=== PATIENT | male | born 1965 | race Caucasian/White ===

== ENCOUNTER 2017-06-16 08:00 | Outpatient (RCR) | payer MEDICARE, MEDICAID, SELFPAY ==
[2017-06-01 12:28] VITALS: BP 154/103; PULSE 100; RESP 18; TEMP 37.3; BMI 37.5
--- NOTE | 2017-06-01 13:01 | WC ---
ADMISSION ASSESSMENT. DIFFICULT TO OBTAIN HX D/T R'S COGNITION. HAS DX OF MRDD, AUTISM W/ OCD. [place] CAREGIVERS FROM [facility], BUT WEREN'T ABLE TO ANSWER ALL QUESTIONS. PT UNABLE TO SIGN CONSENTS. PER CAREGIVERS, HIS MOTHER IS HIS POA. LEFT ON HIS MOTHER'S VOICEMAIL TO CALL FACILITY.
--- NOTE | 2017-06-01 13:26 | HP.PCM_ITS ---
(1) Open arm wound Status: Acute Current Visit: Yes Qualifiers: Encounter type: initial encounter Laterality: left Qualified Code(s): S41.102A - Unspecified open wound of left upper arm, initial encounter Code(s): S41.109A - Unspecified open wound of unspecified upper arm, initial encounter (2) Bite wound of forearm Status: Acute Current Visit: Yes Qualifiers: Encounter type: initial encounter Laterality: left Qualified Code(s): S51.852A - Open bite of left forearm, initial encounter Code(s): S51.859A - Open bite of unspecified forearm, initial encounter (3) Hyperactivity (behavior) Status: Chronic Current Visit: Yes Code(s): F90.9 - Attention-deficit hyperactivity disorder, unspecified type (4) Autism Status: Chronic Current Visit: Yes Code(s): F84.0 - Autistic disorder (5) ADHD Status: Chronic Current Visit: Yes Qualifiers: Attention deficit-hyperactivity disorder type: predominantly hyperactive Qualified Code(s): F90.1 - Attention-deficit hyperactivity disorder, predominantly hyperactive type (6) Ventral hernia Status: Chronic Current Visit: No Qualifiers: Obstruction and gangrene presence: without obstruction or gangrene Qualified Code(s): K43.9 - Ventral hernia without obstruction or gangrene Code(s): K43.9 - Ventral hernia without obstruction or gangrene (7) Hypertension Status: Chronic Current Visit: No Qualifiers: Hypertension type: essential hypertension Qualified Code(s): I10 - Essential (primary) hypertension Code(s): I10 - Essential (primary) hypertension (8) Morbid obesity Status: Chronic Current Visit: No Code(s): E66.01 - Morbid (severe) obesity due to excess calories (9) Severe mental retardation Status: Chronic Current Visit: Yes Code(s): F72 - Severe intellectual disabilities (10) History of MRSA infection Status: Chronic Current Visit: No Code(s): Z86.14 - Personal history of Methicillin resistant Staphylococcus aureus infection History of Present Illness Date of Service: 06/01/17 Chief Complaint: Open bite wound of the left forearm History of Wound: This is a 52-year-old morbidly obese, mentally retarded white male with a wound on the left forearm. It has been present for approximately 1 month. It appears as though the wound is self-inflicted, the result of the patient biting his left forearm. It has failed to heal appropriately. There is suspicion that the patient may chronically pick at his wounds, thus impairing healing. He has a history of such wounds in the past. Several years ago, the patient had a wound on the dorsum of his left hand, which became infected with MRSA, and required surgical intervention. The patient is a resident of [facility]. The patient is said to have 3 abdominal wall hernias, for which surgical intervention is contemplated in the near future at [facility]. Past Medical History Past Medical History: Chronic Problems Hypertension (Chronic) Morbid obesity (Chronic) History of appendicitis (Chronic) history of cellulitis of leg (Chronic) Esophageal reflux (Chronic) Obsessive compulsive disorder (Chronic) Severe mental retardation (Chronic) Hyperactivity (behavior) (Chronic) Autism (Chronic) ADHD (Chronic) Ventral hernia (Chronic) History of MRSA infection (Chronic) Past Medical History: Patient has a history of hypertension, mental retardation , hyperactivity, ADHD, and autism. He is also morbidly obese. His medical history is otherwise unremarkable. Surgical History: appendectomy, - - The patient has had surgery on the dorsum of his left hand in the past related to a wound which became infected with MRSA. Allergies/Adverse Reactions: Allergies haloperidol Allergy (Verified 05/15/14 20:06) Unknown haloperidol lactate [From Haldol] Allergy (Verified 09/09/14 19:10) Unknown NOVOPARADOL Allergy (Uncoded 02/28/17 00:28) Unknown Home Medications: Ambulatory Orders Medication Instructions Recorded Loratadine [Claritin] 10 mg PO DAILY 05/04/14 Melatonin/Pyridoxine [Melatonin 3 2 each PO QHS 05/04/14 mg Tablet] Valsartan/Hydrochlorothiazide 1 tablet PO QHS 05/04/14 [Diovan Hct 80-12.5 MG Tablet] Calcium Carb/Vitamin D 1 tab PO BIDCM 09/09/14 [Caltrate-600 With Vit D Tab] Gabapentin [Neurontin] 100 mg PO BIDCM 09/09/14 Gabapentin [Neurontin] 200 mg PO QHS 09/09/14 Tamsulosin HCl [Flomax] 0.4 mg PO DAILY 09/09/14 Certagen 1 tab PO DAILY 06/02/16 Dextroamphetamine Sulfate 15 mg PO TID 02/28/17 [Dexedrine] Dutasteride [Avodart] 0.5 mg PO DAILY 02/28/17 Paroxetine HCl [Paxil] 20 mg PO DAILY 06/01/17 - Family History Maternal Unknown, - - The patient is unable to give history related to his parents. It is known that both parents are alive. Their medical histories are unknown. Social History: Patient is a resident of [facility]. He is mentally retarded and hyperactive. Smoking Status: Never smoker Tobacco Use: Non-smoker Alcohol: None Drugs: None Review of Systems Constitutional: Reports: - - The patient is morbidly obese. He also demonstrates manifestations of mental retardation and hyperactivity. - Physical Exam Vital Signs Temp Pulse Resp BP 99.1 F 100 18 154/103 H 06/01/17 12:28 06/01/17 12:28 06/01/17 12:28 06/01/17 12:28 General: Alert, Oriented x3, No apparent distress, Well developed, Well nourished, Non-Cooperative, - - The patient has outward appearances of mental retardation. His cognitive function is impaired. He is babbling and somewhat unintelligible. He is morbidly obese. HEENT: Atraumatic, PERRLA, EOMI, Normocephalic Oral: Moist Mucosa Neck: Supple, No JVD, Negative Carotid Bruits, No Nuchal Rigidity Lungs: Clear to auscultation, Normal air movement, No rhonchi, No wheeze, No rales Cardiovascular: Regular rate, Regular Rhythm, Normal S1, Normal S2, No murmurs, No Ectopic Activity Abdomen: Soft, Non Tender, Non-Distended, Obese - Morbidly obese Extremities: No clubbing, No cyanosis, No edema, No Calf Tenderness, - - A cluster of superficial open wounds are noted on the left forearm. There is no overt sign of infection or cellulitis. Wounds are escharous. Skin: No rashes Wound Measurements and Assessment JORDY - Nurse 1 - General Ulcer Measurement Start: 06/01/17 12:27 Freq: Status: Active Protocol: Activity Type Activity Date Activity User E-Sign Co-Sign Detail Recorded Client Recorded Date Recorded By Document 06/01/17 12:28 [facility] [id number] 06/01/17 12:44 BM 06/01/17 12:28 Wound Center Nurse 1 [Ulcer Assessment Protocol: JORDY.WD.LOC] #2 LFA CLUSTER -Combined with other wound No -Current Size (cm) - Length 3.4 -Current Size (cm) - Width 5 -Current Size (cm) - Depth 0.1 -Total Square Cm 17.0 -Date of Last Picture (Recall this 06/01/17 field) -Photo Taken Yes -Epithelialization None Present -Tunneling No -Undermining/Tunneling No -Exudate Amt Small (1-33%) -Exudate Type Sanguineous -Wound Margin Distinct, Outline Attached -Granulation Amt Medium (34-66%) -Granulation Quality Pale Red -Slough/Fibrin Yes -Necrosis Amt Medium (34-66%) -Necrotic Tissue Type Adherent Slough -Structure Exposed None/Limited to Skin Breakdown -Texture (Yokasta-wound Skin Appearance) Localized Edema -Moisture (Yokasta-wound Skin Appearance Assessed ) -Color (Yokasta-wound Skin Appearance) Erythema -Temperature (Yokasta-wound Skin No Abnormality Appearance) (Pt Warm) -Tenderness on Palpation (Yokasta-wound No Skin Appearance) -Ulcer Cleansing Rinsed/ Irrigated with Saline -Foul Odor after Cleansing No -Anesthetic Used 4% Lidocaine Solution Neurological: Cranial nerves II-XII grossly intact Psych/Mental Status: Agitated, Anxious, Restless, - - Patient is hyperactive. His cognitive function appears to be impaired. He is babbling and unintelligible. Debridement Note Laterality: Left - Forearm Type of Debridement: Excisional debridement Anesthesia Used: 4% Lidocaine Solution Depth: Down to and including healthy tissue, in the subcutaneous layer Percentage of wound debrided: 100 Instrument Used: 5mm curette Severity: Fat Layer Exposed Amount of bleeding with debridement: Mild Bleeding Controlled with: Compression and gauze Patient did not tolerate procedure well Because of the patient's impaired cognitive function, he did not tolerate or cooperate with standard excisional debridement. Assessment/Plan Active Problems Severe mental retardation (Chronic) Open arm wound (Acute) Bite wound of forearm (Acute) Hyperactivity (behavior) (Chronic) Autism (Chronic) ADHD (Chronic) Assessment: This is a 52-year-old morbidly obese male with mental retardation, autism, ADHD, hyperactivity, and hypertension. He presents with an apparent self-inflicted bite wound to the left forearm. He has a history of MRSA. Swab cultures for aerobic and anaerobic growth have been obtained. Results will be awaited. Plan: We will await the results of aerobic and anaerobic cultures. Instructions have been given for the application of collagen hydrogel topically on a daily basis. Because of the patient's propensity to pick and scratch at his scabs and wounds, his left upper extremity is to be wrapped with an Aaron wrap continually. This will be removed only once daily for application of the collagen hydrogel. The patient himself has requested a sling, and his request will be obliged. It is felt that this will assist in the avoidance of traumatization by the patient himself. A swab of the patient's nares has been obtained, to ascertain whether the patient may be harboring MRSA, given his history of MRSA infections in the past. Patient is return in 1 week for reassessment. The patient is not a smoker. Influenza vaccine was not administered today. Patient stands 6 feet 1 inches tall. He weighs 300 pounds. BMI is 39.6, which places the patient in a class II category. Weight loss has been recommended.
[2017-06-01 20:18] LABS: M R Staph aureus DNA By PCR Negative (Negative); Probe Check PASS; Specimen Processing Control PASS; Staph aureus DNA By PCR NEGATIVE (Negative)
[2017-06-09 10:11] VITALS: BP 144/85; PULSE 98; RESP 20; TEMP 37.2; BMI 37.5
--- NOTE | 2017-06-09 11:49 | PCM.WC.HP ---
(1) Open arm wound Status: Acute Current Visit: Yes Qualifiers: Encounter type: initial encounter Laterality: left Qualified Code(s): S41.102A - Unspecified open wound of left upper arm, initial encounter Code(s): S41.109A - Unspecified open wound of unspecified upper arm, initial encounter (2) Bite wound of forearm Status: Acute Current Visit: Yes Qualifiers: Encounter type: initial encounter Laterality: left Qualified Code(s): S51.852A - Open bite of left forearm, initial encounter Code(s): S51.859A - Open bite of unspecified forearm, initial encounter (3) Hyperactivity (behavior) Status: Chronic Current Visit: Yes Code(s): F90.9 - Attention-deficit hyperactivity disorder, unspecified type (4) Autism Status: Chronic Current Visit: Yes Code(s): F84.0 - Autistic disorder (5) ADHD Status: Chronic Current Visit: Yes Qualifiers: Attention deficit-hyperactivity disorder type: predominantly hyperactive Qualified Code(s): F90.1 - Attention-deficit hyperactivity disorder, predominantly hyperactive type (6) Ventral hernia Status: Chronic Current Visit: No Qualifiers: Obstruction and gangrene presence: without obstruction or gangrene Qualified Code(s): K43.9 - Ventral hernia without obstruction or gangrene Code(s): K43.9 - Ventral hernia without obstruction or gangrene (7) Hypertension Status: Chronic Current Visit: No Qualifiers: Hypertension type: essential hypertension Qualified Code(s): I10 - Essential (primary) hypertension Code(s): I10 - Essential (primary) hypertension (8) Morbid obesity Status: Chronic Current Visit: No Code(s): E66.01 - Morbid (severe) obesity due to excess calories (9) Severe mental retardation Status: Chronic Current Visit: Yes Code(s): F72 - Severe intellectual disabilities (10) History of MRSA infection Status: Chronic Current Visit: No Code(s): Z86.14 - Personal history of Methicillin resistant Staphylococcus aureus infection History of Present Illness Date of Service: 06/09/17 Chief Complaint: Open bite wound of the left forearm History of Wound: This is a 52-year-old morbidly obese, mentally retarded white male with a wound on the left forearm. It has been present for approximately 1 month. It appears as though the wound is self-inflicted, the result of the patient biting his left forearm. It has failed to heal appropriately. There is suspicion that the patient may chronically pick at his wounds, thus impairing healing. He has a history of such wounds in the past. Several years ago, the patient had a wound on the dorsum of his left hand, which became infected with MRSA, and required surgical intervention. The patient is a resident of [facility]. The patient is said to have 3 abdominal wall hernias, for which surgical intervention is contemplated in the near future at [facility]. Since the patient's last visit, it is learned that the patient has been noncompliant. He has repeatedly removed the Aaron wrap which was applied to his left arm to prevent biting and scratching. Furthermore, an aide who is at the bedside indicates that he has been bitten the area, reinjuring the left forearm. Culture results from the patient's initial visit revealed the presence of staph aureus, for which we will prescribe Levaquin 500 mg p.o. daily. Nasal swab was negative for MRSA. Past Medical History Past Medical History: Chronic Problems Hypertension (Chronic) Morbid obesity (Chronic) History of appendicitis (Chronic) history of cellulitis of leg (Chronic) Esophageal reflux (Chronic) Obsessive compulsive disorder (Chronic) Severe mental retardation (Chronic) Hyperactivity (behavior) (Chronic) Autism (Chronic) ADHD (Chronic) Ventral hernia (Chronic) History of MRSA infection (Chronic) Surgical History: appendectomy, - - The patient has had surgery on the dorsum of his left hand in the past related to a wound which became infected with MRSA. Allergies/Adverse Reactions: Allergies haloperidol Allergy (Verified 05/15/14 20:06) Unknown haloperidol lactate [From Haldol] Allergy (Verified 09/09/14 19:10) Unknown NOVOPARADOL Allergy (Uncoded 02/28/17 00:28) Unknown Home Medications: Ambulatory Orders Medication Instructions Recorded Loratadine [Claritin] 10 mg PO DAILY 05/04/14 Melatonin/Pyridoxine [Melatonin 3 2 each PO QHS 05/04/14 mg Tablet] Valsartan/Hydrochlorothiazide 1 tablet PO QHS 05/04/14 [Diovan Hct 80-12.5 MG Tablet] Calcium Carb/Vitamin D 1 tab PO BIDCM 09/09/14 [Caltrate-600 With Vit D Tab] Gabapentin [Neurontin] 100 mg PO BIDCM 09/09/14 Gabapentin [Neurontin] 200 mg PO QHS 09/09/14 Tamsulosin HCl [Flomax] 0.4 mg PO DAILY 09/09/14 Certagen 1 tab PO DAILY 06/02/16 Dextroamphetamine Sulfate 15 mg PO TID 02/28/17 [Dexedrine] Dutasteride [Avodart] 0.5 mg PO DAILY 02/28/17 Paroxetine HCl [Paxil] 20 mg PO DAILY 06/01/17 - Family History Maternal Unknown, - - The patient is unable to give history related to his parents. It is known that both parents are alive. Their medical histories are unknown. Smoking Status: Never smoker Tobacco Use: Non-smoker Alcohol: None Drugs: None Review of Systems Constitutional: Reports: - - She is mentally retarded/cognitively disabled.. Denies: Chills, Fever, Weight Change Eyes: Denies: Pain, Vision Change HEENT: Denies: Difficulty Hearing, Difficulty Swallowing, Sinus Congestion Cardiovascular: Denies: Chest Pain, Palpitations Respiratory: Denies: Cough, Shortness of Breath Gastrointestinal: Denies: Diarrhea, Nausea, Vomiting Genitourinary: Denies: Dysuria, Hematuria Endocrine: Denies: Heat/ Cold Intolerance, Polydipsia, Polyuria Hematologic/ Lymphatic: Denies: Easy Bruising, Easy Bleeding - Physical Exam Vital Signs Temp Pulse Resp BP 98.9 F 98 20 H 144/85 H 06/09/17 10:11 06/09/17 10:11 06/09/17 10:11 06/09/17 10:11 General: Alert, Oriented x3, Cooperative, No apparent distress, Well developed, Well nourished, - - The patient is mentally retarded/cognitively disabled. He is also morbidly obese. HEENT: Atraumatic, PERRLA, EOMI, Normocephalic Oral: Moist Mucosa Neck: No JVD Lungs: Normal air movement Abdomen: Non-Distended Extremities: No clubbing, No cyanosis, No Calf Tenderness, - - Two nearby wounds are noted on the patient's left forearm. Dimensions are documented elsewhere. There is a moderate amount of biofilm and bioburden. Wound Measurements and Assessment WC - Nurse 1 - General Ulcer Measurement Start: 06/01/17 12:27 Freq: Status: Active Protocol: Activity Type Activity Date Activity User E-Sign Co-Sign Detail Recorded Client Recorded Date Recorded By Document 06/09/17 10:11 MW [id number] 06/09/17 10:15 MW 06/09/17 10:11 Wound Center Nurse 1 [Ulcer Assessment Protocol: WC.WD.LOC] #2 LFA CLUSTER -Combined with other wound No -Current Size (cm) - Length 7.1 -Current Size (cm) - Width 4.0 -Current Size (cm) - Depth 0.1 -Total Square Cm 28.40 -Photo Taken No -Epithelialization None Present -Tunneling No -Undermining/Tunneling No -Circular Undermining No -Exudate Amt None Present (0 %) -Wound Margin Flat & Intact -Granulation Amt None Present (0 %) -Granulation Quality N/A -Slough/Fibrin Yes -Necrosis Amt Large (67-100%) -Necrotic Tissue Type Adherent Slough -Structure Exposed N/A -Texture (Yokasta-wound Skin Appearance) No Abnormality Assessed -Moisture (Yokasta-wound Skin Appearance Assessed ) Dry/Scaly -Color (Yokasta-wound Skin Appearance) No Abnormality Assessed -Temperature (Yokasta-wound Skin No Abnormality Appearance) (Pt Warm) -Tenderness on Palpation (Yokasta-wound No Skin Appearance) -Ulcer Cleansing Rinsed/ Irrigated with Saline -Foul Odor after Cleansing No -Anesthetic Used 4% Lidocaine Solution [Edema Assessment] -Lower Limb Edema Present No - Nurse 2 - General Ulcer CM Notes Start: 06/01/17 12:27 Freq: Status: Active Protocol: Activity Type Activity Date Activity User E-Sign Co-Sign Detail Recorded Client Recorded Date Recorded By Document 06/09/17 11:34 BRIDGER [id number] 06/09/17 11:49 JS 06/09/17 11:34 Wound Center Nurse 2 [Procedure/Treatment] #2 LFA CLUSTER -Time 11:34 -Correct Patient Yes -Correct Side, Site, Position Yes -Correct Procedure Yes -Procedure Performed Yes -Type of Procedure Debridement -Clinical Debridement Subcutaneous -Post Debridement Size (cm) - Length 7.1 -Post Debridement Size (cm) - Width 4.0 -Post Debridement Size (cm) - Depth 0.1 -Total Square Cm 28.40 -Wound/Ulcer Outcome Healed- Flap -Ulcer Cleansing Rinsed/ Irrigated with Saline [See Physician Procedure note for Specifics] Pain Scale: 0-10 Numeric [Pain] -Is Patient Pain Free? Yes Neurological: Cranial nerves II-XII grossly intact Psych/Mental Status: Restless, - - Patient is cognitively impaired Debridement Note Post-Debridement Measurements/Treatment WC - Nurse 2 - General Ulcer CM Notes Start: 06/01/17 12:27 Freq: Status: Active Protocol: Activity Type Activity Date Activity User E-Sign Co-Sign Detail Recorded Client Recorded Date Recorded By Document 06/01/17 13:02 [id number] 06/01/17 13:25 JS Document 06/09/17 11:34 [id number] 06/09/17 11:49 JS 06/01/17 06/09/17 13:02 11:34 Wound Center Nurse 2 #2 LFA CLUSTER -Time 13:02 11:34 -Correct Patient Yes Yes -Correct Side, Site, Position Yes Yes -Correct Procedure Yes -Procedure Performed Yes -Type of Procedure Debridement -Clinical Debridement Subcutaneous -Post Debridement Size (cm) - Length 7.1 -Post Debridement Size (cm) - Width 4.0 -Post Debridement Size (cm) - Depth 0.1 -Total Square Cm 28.40 -Wound/Ulcer Outcome Not Healed Healed- Flap -Ulcer Cleansing Rinsed/ Rinsed/ Irrigated with Irrigated with Saline Saline -Foul Odor after Cleansing No -Cetacaine [place] No -Topical Lidocaine (%) 4 -Lidocaine (ml) 5 -Bleeding Controlled with NA -Treatment Response Procedure Tolerated Well Pain Scale: 0-10 Numeric Is Patient Pain Free? Yes Yes Laterality: Left - Forearm Type of Debridement: Excisional debridement Anesthesia Used: 4% Lidocaine Solution Depth: Down to and including healthy tissue, in the subcutaneous layer Percentage of wound debrided: 100 Instrument Used: 5mm curette Severity: Fat Layer Exposed Amount of bleeding with debridement: Mild Bleeding Controlled with: Compression and gauze Patient did not tolerate procedure well Assessment/Plan Active Problems Severe mental retardation (Chronic) Open arm wound (Acute) Bite wound of forearm (Acute) Hyperactivity (behavior) (Chronic) Autism (Chronic) ADHD (Chronic) Assessment: This is a 52-year-old morbidly obese male with mental retardation, autism, ADHD, hyperactivity, and hypertension. He presents with an apparent self-inflicted bite wound to the left forearm. He has a history of MRSA. Swab cultures for aerobic and anaerobic growth have been obtained, 7 positive for Staphylococcus aureus. We are to treat with Levaquin. Noncompliant in maintaining an Aaron wrap to the left forearm, and has self-inflicted additional trauma to the area. Plan: We are to apply a 2 layer 3M compression wrap to the left forearm. Aaron wrap will be then applied lightly. This multilayer wrap is to serve as a barrier to additional traumatization by the patient himself, who is prone to do so. We are to treat the wounds topically with Aquacel silver, which will be changed every 3-4 days, along with the compression wraps. Patient is to return in 1 week for reassessment. Because of the patient's propensity to pick and scratch at his scabs and wounds, his left upper extremity is to be wrapped with an multilayer wrap continually. The patient himself has requested a sling, and his request will be obliged. It is felt that this will assist in the avoidance of traumatization by the patient himself. A swab of the patient's nares has been obtained, which was negative for MRSA. The patient is return in 1 week for reassessment. The patient is not a smoker. Influenza vaccine was not administered today. Patient stands 6 feet 1 inches tall. He weighs 300 pounds. BMI is 39.6, which places the patient in a class II category. Weight loss has been recommended.
[2017-06-16 08:13] VITALS: BP 160/85; PULSE 89; RESP 20; TEMP 36.6; BMI 37.5
--- NOTE | 2017-06-16 08:55 | PCM.WC.HP ---
(1) Open arm wound Status: Acute Current Visit: Yes Qualifiers: Encounter type: subsequent encounter Laterality: left Qualified Code(s): S41.102D - Unspecified open wound of left upper arm, subsequent encounter Code(s): S41.109A - Unspecified open wound of unspecified upper arm, initial encounter (2) Bite wound of forearm Status: Acute Current Visit: Yes Qualifiers: Encounter type: subsequent encounter Laterality: left Qualified Code(s): S51.852D - Open bite of left forearm, subsequent encounter Code(s): S51.859A - Open bite of unspecified forearm, initial encounter (3) Hyperactivity (behavior) Status: Chronic Current Visit: Yes Code(s): F90.9 - Attention-deficit hyperactivity disorder, unspecified type (4) Autism Status: Chronic Current Visit: Yes Code(s): F84.0 - Autistic disorder (5) ADHD Status: Chronic Current Visit: Yes Qualifiers: Attention deficit-hyperactivity disorder type: predominantly hyperactive Qualified Code(s): F90.1 - Attention-deficit hyperactivity disorder, predominantly hyperactive type (6) Ventral hernia Status: Chronic Current Visit: No Qualifiers: Obstruction and gangrene presence: without obstruction or gangrene Qualified Code(s): K43.9 - Ventral hernia without obstruction or gangrene Code(s): K43.9 - Ventral hernia without obstruction or gangrene (7) Hypertension Status: Chronic Current Visit: No Qualifiers: Hypertension type: essential hypertension Qualified Code(s): I10 - Essential (primary) hypertension Code(s): I10 - Essential (primary) hypertension (8) Morbid obesity Status: Chronic Current Visit: No Code(s): E66.01 - Morbid (severe) obesity due to excess calories (9) Severe mental retardation Status: Chronic Current Visit: Yes Code(s): F72 - Severe intellectual disabilities (10) History of MRSA infection Status: Chronic Current Visit: No Code(s): Z86.14 - Personal history of Methicillin resistant Staphylococcus aureus infection History of Present Illness Date of Service: 06/16/17 Chief Complaint: Open bite wound of the left forearm History of Wound: This is a 52-year-old morbidly obese, mentally retarded white male with a wound on the left forearm. It has been present for approximately 1-2 months. It appears as though the wound is self-inflicted, the result of the patient biting his left forearm. It has failed to heal appropriately. The patient may chronically picks and bites at his wounds, thus impairing healing. He has a history of such wounds in the past. Several years ago, the patient had a wound on the dorsum of his left hand, which became infected with MRSA, and required surgical intervention. The patient is a resident of [facility]. The patient is said to have 3 abdominal wall hernias, for which surgical intervention is contemplated in the near future at [facility]. The goal is to achieve healing of the patient's left arm wounds prior to any surgical intervention for hernia repair. The patient has been noncompliant. He has repeatedly removed the Aaron wrap 2 layer wraps which have been applied to his left arm to prevent biting and scratching. 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 Culture results from the patient's initial visit revealed the presence of staph aureus, for which we prescribed Levaquin 500 mg p.o. daily. Nasal swab was negative for MRSA. Past Medical History Past Medical History: Chronic Problems Hypertension (Chronic) Morbid obesity (Chronic) History of appendicitis (Chronic) history of cellulitis of leg (Chronic) Esophageal reflux (Chronic) Obsessive compulsive disorder (Chronic) Severe mental retardation (Chronic) Hyperactivity (behavior) (Chronic) Autism (Chronic) ADHD (Chronic) Ventral hernia (Chronic) History of MRSA infection (Chronic) Surgical History: appendectomy, - - The patient has had surgery on the dorsum of his left hand in the past related to a wound which became infected with MRSA. Allergies/Adverse Reactions: Allergies haloperidol Allergy (Verified 05/15/14 20:06) Unknown haloperidol lactate [From Haldol] Allergy (Verified 09/09/14 19:10) Unknown NOVOPARADOL Allergy (Uncoded 02/28/17 00:28) Unknown Home Medications: Ambulatory Orders Medication Instructions Recorded Loratadine [Claritin] 10 mg PO DAILY 05/04/14 Melatonin/Pyridoxine [Melatonin 3 2 each PO QHS 05/04/14 mg Tablet] Valsartan/Hydrochlorothiazide 1 tablet PO QHS 05/04/14 [Diovan Hct 80-12.5 MG Tablet] Calcium Carb/Vitamin D 1 tab PO BIDCM 09/09/14 [Caltrate-600 With Vit D Tab] Gabapentin [Neurontin] 100 mg PO BIDCM 09/09/14 Gabapentin [Neurontin] 200 mg PO QHS 09/09/14 Tamsulosin HCl [Flomax] 0.4 mg PO DAILY 09/09/14 Certagen 1 tab PO DAILY 06/02/16 Dextroamphetamine Sulfate 15 mg PO TID 02/28/17 [Dexedrine] Dutasteride [Avodart] 0.5 mg PO DAILY 02/28/17 Paroxetine HCl [Paxil] 20 mg PO DAILY 06/01/17 - Family History Maternal Unknown, - - The patient is unable to give history related to his parents. It is known that both parents are alive. Their medical histories are unknown. Smoking Status: Never smoker Tobacco Use: Non-smoker Alcohol: None Drugs: None Review of Systems Constitutional: Reports: - - Patient's psychiatric diagnosis is documented elsewhere.. Denies: Chills, Fever, Weight Change Eyes: Denies: Pain, Vision Change HEENT: Denies: Difficulty Hearing, Difficulty Swallowing, Sinus Congestion Cardiovascular: Denies: Chest Pain, Palpitations Respiratory: Denies: Cough, Shortness of Breath Gastrointestinal: Denies: Diarrhea, Nausea, Vomiting Genitourinary: Denies: Dysuria, Hematuria Endocrine: Denies: Heat/ Cold Intolerance, Polydipsia, Polyuria Hematologic/ Lymphatic: Denies: Easy Bruising, Easy Bleeding - Physical Exam Vital Signs Temp Pulse Resp BP 97.8 F 89 20 H 160/85 H 06/16/17 08:13 06/16/17 08:13 06/16/17 08:13 06/16/17 08:13 General: Alert, Oriented x3, No apparent distress, Well developed, Well nourished, Disoriented, Non-Cooperative, - - Patient is large and obese. The patient's mental deficiencies are apparent outwardly. HEENT: Atraumatic, PERRLA, EOMI, Normocephalic Oral: Moist Mucosa Neck: No JVD Lungs: Normal air movement Abdomen: Non-Distended Extremities: No clubbing, No cyanosis, No edema, - - The patient's left forearm reveals a cluster of superficial abrasions. In aggregate, the wound is smaller. Is no sign of infection, and the site is devoid of erythema or cellulitis. Dimensions are documented elsewhere. Skin: No rashes Wound Measurements and Assessment WC - Nurse 1 - General Ulcer Measurement Start: 06/01/17 12:27 Freq: Status: Active Protocol: Activity Type Activity Date Activity User E-Sign Co-Sign Detail Recorded Client Recorded Date Recorded By Document 06/16/17 08:13 MW [id number] 06/16/17 08:17 MW 06/16/17 08:13 Wound Center Nurse 1 [Ulcer Assessment Protocol: WC.WD.LOC] #2 LFA CLUSTER -Combined with other wound No -Current Size (cm) - Length 6.9 -Current Size (cm) - Width 2.0 -Current Size (cm) - Depth 0.1 -Total Square Cm 13.80 -Photo Taken No -Epithelialization None Present -Tunneling No -Undermining/Tunneling No -Circular Undermining No -Exudate Amt Small (1-33%) -Exudate Type Sanguineous -Wound Margin Flat & Intact -Granulation Amt Small (1-33%) -Granulation Quality Red -Slough/Fibrin Yes -Necrosis Amt Medium (34-66%) -Necrotic Tissue Type Adherent Slough -Structure Exposed N/A -Texture ([place]-wound Skin Appearance) Assessed Scarring -Moisture ([place]-wound Skin Appearance Assessed ) Dry/Scaly -Color ([place]-wound Skin Appearance) No Abnormality Assessed -Temperature ([place]-wound Skin No Abnormality Appearance) (Pt Warm) -Tenderness on Palpation ([place]-wound No Skin Appearance) -Ulcer Cleansing Rinsed/ Irrigated with Saline -Foul Odor after Cleansing No -Anesthetic Used 4% Lidocaine Solution [Edema Assessment] -Lower Limb Edema Present No - Nurse 2 - General Ulcer CM Notes Start: 06/01/17 12:27 Freq: Status: Active Protocol: Activity Type Activity Date Activity User E-Sign Co-Sign Detail Recorded Client Recorded Date Recorded By Document 06/16/17 08:41 JS [id number] 06/16/17 08:43 JS 06/16/17 08:41 Wound Center Nurse 2 [Procedure/Treatment] #2 LFA CLUSTER -Time 08:41 -Correct Patient Yes -Correct Side, Site, Position Yes -Correct Procedure Yes -Procedure Performed No -Wound/Ulcer Outcome Not Healed -Ulcer Cleansing Rinsed/ Irrigated with Saline -Foul Odor after Cleansing No -Bioengineered Tissue No -Cetacaine [place] No -Topical Lidocaine (%) 4 -Lidocaine (ml) 5 -Bleeding Controlled with NA [See Physician Procedure note for Specifics] Pain Scale: 0-10 Numeric [Pain] -Is Patient Pain Free? Yes Neurological: Cranial nerves II-XII grossly intact Psych/Mental Status: Agitated, Restless Debridement Note Post-Debridement Measurements/Treatment WC - Nurse 2 - General Ulcer CM Notes Start: 06/01/17 12:27 Freq: Status: Active Protocol: Activity Type Activity Date Activity User E-Sign Co-Sign Detail Recorded Client Recorded Date Recorded By Document 06/01/17 13:02 [id number] 06/01/17 13:25 JS Document 06/09/17 11:34 JS [id number] 06/09/17 11:49 JS Document 06/16/17 08:41 [id number] 06/16/17 08:43 06/01/17 06/09/17 06/16/17 13:02 11:34 08:41 Wound Center Nurse 2 #2 LFA CLUSTER -Time 13:02 11:34 08:41 -Correct Patient Yes Yes Yes -Correct Side, Site, Position Yes Yes Yes -Correct Procedure Yes Yes -Procedure Performed Yes No -Type of Procedure Debridement -Clinical Debridement Subcutaneous -Post Debridement Size (cm) - Length 7.1 -Post Debridement Size (cm) - Width 4.0 -Post Debridement Size (cm) - Depth 0.1 -Total Square Cm 28.40 -Wound/Ulcer Outcome Not Healed Healed- Flap Not Healed -Ulcer Cleansing Rinsed/ Rinsed/ Rinsed/ Irrigated with Irrigated with Irrigated with Saline Saline Saline -Foul Odor after Cleansing No No -Bioengineered Tissue No -Cetacaine [place] No No -Topical Lidocaine (%) 4 4 -Lidocaine (ml) 5 5 -Bleeding Controlled with NA NA -Treatment Response Procedure Tolerated Well Pain Scale: 0-10 Numeric Is Patient Pain Free? Yes Yes Yes No debridement was completed today Assessment/Plan Active Problems Severe mental retardation (Chronic) Open arm wound (Acute) Bite wound of forearm (Acute) Hyperactivity (behavior) (Chronic) Autism (Chronic) ADHD (Chronic) Assessment: This is a 52-year-old morbidly obese male with mental retardation, autism, ADHD, hyperactivity, and hypertension. He presents with an apparent self-inflicted bite wound to the left forearm. He has a history of MRSA. Swab cultures for aerobic and anaerobic growth have been obtained, positive for staph aureus, and the patient has been treated with Levaquin. The patient has been noncompliant in maintaining an Aaron wrap and 2 layer wraps to the left forearm, and has self-inflicted additional trauma to the area. Plan: We are to apply a 2 layer 3M compression wrap to the left forearm. Aaron wrap will be then applied lightly. This multilayer wrap is to serve as a barrier to additional traumatization by the patient himself, who is prone to do so. Thus far we have been unsuccessful, as the patient has repeatedly remove these wraps. We are to treat the wounds topically with collagen hydrogel. Patient is to return in 1 week for nursing reassessment. Because of the patient's propensity to pick and scratch at his scabs and wounds, his left upper extremity is to be wrapped with an multilayer wrap continually. The patient himself has requested a sling, and his request has been obliged. A nasal swab was negative for MRSA. The patient is return in 1 week for nursing reassessment. Physician reassessment will take place in approximately 3 weeks. Ultimately, it may be necessary to consider using a fiberglass cast on the left forearm, hopefully to prevent patient access to the area in an effort to prevent self-inflicted reinjury. In this regard, we may need to recruit the services of an process control specialist or senior manufacturing technician. The patient is not a smoker. Influenza vaccine was not administered today. Patient stands 6 feet 1 inches tall. He weighs 300 pounds. BMI is 39.6, which places the patient in a class II category. Weight loss has been recommended.
--- NOTE | 2017-06-16 09:05 | HP.PCM_ITS ---
(1) Open arm wound Status: Acute Current Visit: Yes Qualifiers: Encounter type: subsequent encounter Laterality: left Qualified Code(s): S41.102D - Unspecified open wound of left upper arm, subsequent encounter Code(s): S41.109A - Unspecified open wound of unspecified upper arm, initial encounter (2) Bite wound of forearm Status: Acute Current Visit: Yes Qualifiers: Encounter type: subsequent encounter Laterality: left Qualified Code(s): S51.852D - Open bite of left forearm, subsequent encounter Code(s): S51.859A - Open bite of unspecified forearm, initial encounter (3) Hyperactivity (behavior) Status: Chronic Current Visit: Yes Code(s): F90.9 - Attention-deficit hyperactivity disorder, unspecified type (4) Autism Status: Chronic Current Visit: Yes Code(s): F84.0 - Autistic disorder (5) ADHD Status: Chronic Current Visit: Yes Qualifiers: Attention deficit-hyperactivity disorder type: predominantly hyperactive Qualified Code(s): F90.1 - Attention-deficit hyperactivity disorder, predominantly hyperactive type (6) Ventral hernia Status: Chronic Current Visit: No Qualifiers: Obstruction and gangrene presence: without obstruction or gangrene Qualified Code(s): K43.9 - Ventral hernia without obstruction or gangrene Code(s): K43.9 - Ventral hernia without obstruction or gangrene (7) Hypertension Status: Chronic Current Visit: No Qualifiers: Hypertension type: essential hypertension Qualified Code(s): I10 - Essential (primary) hypertension Code(s): I10 - Essential (primary) hypertension (8) Morbid obesity Status: Chronic Current Visit: No Code(s): E66.01 - Morbid (severe) obesity due to excess calories (9) Severe mental retardation Status: Chronic Current Visit: Yes Code(s): F72 - Severe intellectual disabilities (10) History of MRSA infection Status: Chronic Current Visit: No Code(s): Z86.14 - Personal history of Methicillin resistant Staphylococcus aureus infection History of Present Illness Date of Service: 06/16/17 Chief Complaint: Open bite wound of the left forearm History of Wound: This is a 52-year-old morbidly obese, mentally retarded white male with a wound on the left forearm. It has been present for approximately 1- 2 months. It appears as though the wound is self-inflicted, the result of the patient biting his left forearm. It has failed to heal appropriately. The patient may chronically picks and bites at his wounds, thus impairing healing. He has a history of such wounds in the past. Several years ago, the patient had a wound on the dorsum of his left hand, which became infected with MRSA, and required surgical intervention. The patient is a resident of [facility]. The patient is said to have 3 abdominal wall hernias, for which surgical intervention is contemplated in the near future at [facility]. The goal is to achieve healing of the patient's left arm wounds prior to any surgical intervention for hernia repair. The patient has been noncompliant. He has repeatedly removed the Aaron wrap 2 layer wraps which have been applied to his left arm to prevent biting and scratching. 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 Culture results from the patient's initial visit revealed the presence of staph aureus, for which we prescribed Levaquin 500 mg p.o. daily. Nasal swab was negative for MRSA. Past Medical History Past Medical History: Chronic Problems Hypertension (Chronic) Morbid obesity (Chronic) History of appendicitis (Chronic) history of cellulitis of leg (Chronic) Esophageal reflux (Chronic) Obsessive compulsive disorder (Chronic) Severe mental retardation (Chronic) Hyperactivity (behavior) (Chronic) Autism (Chronic) ADHD (Chronic) Ventral hernia (Chronic) History of MRSA infection (Chronic) Surgical History: appendectomy, - - The patient has had surgery on the dorsum of his left hand in the past related to a wound which became infected with MRSA. Allergies/Adverse Reactions: Allergies haloperidol Allergy (Verified 05/15/14 20:06) Unknown haloperidol lactate [From Haldol] Allergy (Verified 09/09/14 19:10) Unknown NOVOPARADOL Allergy (Uncoded 02/28/17 00:28) Unknown Home Medications: Ambulatory Orders Medication Instructions Recorded Loratadine [Claritin] 10 mg PO DAILY 05/04/14 Melatonin/Pyridoxine [Melatonin 3 2 each PO QHS 05/04/14 mg Tablet] Valsartan/Hydrochlorothiazide 1 tablet PO QHS 05/04/14 [Diovan Hct 80-12.5 MG Tablet] Calcium Carb/Vitamin D 1 tab PO BIDCM 09/09/14 [Caltrate-600 With Vit D Tab] Gabapentin [Neurontin] 100 mg PO BIDCM 09/09/14 Gabapentin [Neurontin] 200 mg PO QHS 09/09/14 Tamsulosin HCl [Flomax] 0.4 mg PO DAILY 09/09/14 Certagen 1 tab PO DAILY 06/02/16 Dextroamphetamine Sulfate 15 mg PO TID 02/28/17 [Dexedrine] Dutasteride [Avodart] 0.5 mg PO DAILY 02/28/17 Paroxetine HCl [Paxil] 20 mg PO DAILY 06/01/17 - Family History Maternal Unknown, - - The patient is unable to give history related to his parents. It is known that both parents are alive. Their medical histories are unknown. Smoking Status: Never smoker Tobacco Use: Non-smoker Alcohol: None Drugs: None Review of Systems Constitutional: Reports: - - Patient's psychiatric diagnosis is documented elsewhere.. Denies: Chills, Fever, Weight Change Eyes: Denies: Pain, Vision Change HEENT: Denies: Difficulty Hearing, Difficulty Swallowing, Sinus Congestion Cardiovascular: Denies: Chest Pain, Palpitations Respiratory: Denies: Cough, Shortness of Breath Gastrointestinal: Denies: Diarrhea, Nausea, Vomiting Genitourinary: Denies: Dysuria, Hematuria Endocrine: Denies: Heat/ Cold Intolerance, Polydipsia, Polyuria Hematologic/ Lymphatic: Denies: Easy Bruising, Easy Bleeding - Physical Exam Vital Signs Temp Pulse Resp BP 97.8 F 89 20 H 160/85 H 06/16/17 08:13 06/16/17 08:13 06/16/17 08:13 06/16/17 08:13 General: Alert, Oriented x3, No apparent distress, Well developed, Well nourished, Disoriented, Non-Cooperative, - - Patient is large and obese. The patient's mental deficiencies are apparent outwardly. HEENT: Atraumatic, PERRLA, EOMI, Normocephalic Oral: Moist Mucosa Neck: No JVD Lungs: Normal air movement Abdomen: Non-Distended Extremities: No clubbing, No cyanosis, No edema, - - The patient's left forearm reveals a cluster of superficial abrasions. In aggregate, the wound is smaller. Is no sign of infection, and the site is devoid of erythema or cellulitis. Dimensions are documented elsewhere. Skin: No rashes Wound Measurements and Assessment WC - Nurse 1 - General Ulcer Measurement Start: 06/01/17 12:27 Freq: Status: Active Protocol: Activity Type Activity Date Activity User E-Sign Co-Sign Detail Recorded Client Recorded Date Recorded By Document 06/16/17 08:13 MW [id number] 06/16/17 08:17 MW 06/16/17 08:13 Wound Center Nurse 1 [Ulcer Assessment Protocol: WC.WD.LOC] #2 LFA CLUSTER -Combined with other wound No -Current Size (cm) - Length 6.9 -Current Size (cm) - Width 2.0 -Current Size (cm) - Depth 0.1 -Total Square Cm 13.80 -Photo Taken No -Epithelialization None Present -Tunneling No -Undermining/Tunneling No -Circular Undermining No -Exudate Amt Small (1-33%) -Exudate Type Sanguineous -Wound Margin Flat & Intact -Granulation Amt Small (1-33%) -Granulation Quality Red -Slough/Fibrin Yes -Necrosis Amt Medium (34-66%) -Necrotic Tissue Type Adherent Slough -Structure Exposed N/A -Texture (Yokasta-wound Skin Appearance) Assessed Scarring -Moisture (Yokasta-wound Skin Appearance Assessed ) Dry/Scaly -Color (Yokasta-wound Skin Appearance) No Abnormality Assessed -Temperature (Yokasta-wound Skin No Abnormality Appearance) (Pt Warm) -Tenderness on Palpation (Yokasta-wound No Skin Appearance) -Ulcer Cleansing Rinsed/ Irrigated with Saline -Foul Odor after Cleansing No -Anesthetic Used 4% Lidocaine Solution [Edema Assessment] -Lower Limb Edema Present No - Nurse 2 - General Ulcer CM Notes Start: 06/01/17 12:27 Freq: Status: Active Protocol: Activity Type Activity Date Activity User E-Sign Co-Sign Detail Recorded Client Recorded Date Recorded By Document 06/16/17 08:41 JS [id number] 06/16/17 08:43 JS 06/16/17 08:41 Wound Center Nurse 2 [Procedure/Treatment] #2 LFA CLUSTER -Time 08:41 -Correct Patient Yes -Correct Side, Site, Position Yes -Correct Procedure Yes -Procedure Performed No -Wound/Ulcer Outcome Not Healed -Ulcer Cleansing Rinsed/ Irrigated with Saline -Foul Odor after Cleansing No -Bioengineered Tissue No -Cetacaine [place] No -Topical Lidocaine (%) 4 -Lidocaine (ml) 5 -Bleeding Controlled with NA [See Physician Procedure note for Specifics] Pain Scale: 0-10 Numeric [Pain] -Is Patient Pain Free? Yes Neurological: Cranial nerves II-XII grossly intact Psych/Mental Status: Agitated, Restless Debridement Note Post-Debridement Measurements/Treatment WC - Nurse 2 - General Ulcer CM Notes Start: 06/01/17 12:27 Freq: Status: Active Protocol: Activity Type Activity Date Activity User E-Sign Co-Sign Detail Recorded Client Recorded Date Recorded By Document 06/01/17 13:02 [id number] 06/01/17 13:25 JS Document 06/09/17 11:34 JS [id number] 06/09/17 11:49 JS Document 06/16/17 08:41 [id number] 06/16/17 08:43 06/01/17 06/09/17 06/16/17 13:02 11:34 08:41 Wound Center Nurse 2 #2 LFA CLUSTER -Time 13:02 11:34 08:41 -Correct Patient Yes Yes Yes -Correct Side, Site, Position Yes Yes Yes -Correct Procedure Yes Yes -Procedure Performed Yes No -Type of Procedure Debridement -Clinical Debridement Subcutaneous -Post Debridement Size (cm) - Length 7.1 -Post Debridement Size (cm) - Width 4.0 -Post Debridement Size (cm) - Depth 0.1 -Total Square Cm 28.40 -Wound/Ulcer Outcome Not Healed Healed- Flap Not Healed -Ulcer Cleansing Rinsed/ Rinsed/ Rinsed/ Irrigated with Irrigated with Irrigated with Saline Saline Saline -Foul Odor after Cleansing No No -Bioengineered Tissue No -Cetacaine [place] No No -Topical Lidocaine (%) 4 4 -Lidocaine (ml) 5 5 -Bleeding Controlled with NA NA -Treatment Response Procedure Tolerated Well Pain Scale: 0-10 Numeric Is Patient Pain Free? Yes Yes Yes No debridement was completed today Assessment/Plan Active Problems Severe mental retardation (Chronic) Open arm wound (Acute) Bite wound of forearm (Acute) Hyperactivity (behavior) (Chronic) Autism (Chronic) ADHD (Chronic) Assessment: This is a 52-year-old morbidly obese male with mental retardation, autism, ADHD, hyperactivity, and hypertension. He presents with an apparent self-inflicted bite wound to the left forearm. He has a history of MRSA. Swab cultures for aerobic and anaerobic growth have been obtained, positive for staph aureus, and the patient has been treated with Levaquin. The patient has been noncompliant in maintaining an Aaron wrap and 2 layer wraps to the left forearm, and has self-inflicted additional trauma to the area. Plan: We are to apply a 2 layer 3M compression wrap to the left forearm. Aaron wrap will be then applied lightly. This multilayer wrap is to serve as a barrier to additional traumatization by the patient himself, who is prone to do so. Thus far we have been unsuccessful, as the patient has repeatedly remove these wraps. We are to treat the wounds topically with collagen hydrogel. Patient is to return in 1 week for nursing reassessment. Because of the patient 's propensity to pick and scratch at his scabs and wounds, his left upper extremity is to be wrapped with an multilayer wrap continually. The patient himself has requested a sling, and his request has been obliged. A nasal swab was negative for MRSA. The patient is return in 1 week for nursing reassessment. Physician reassessment will take place in approximately 3 weeks. Ultimately, it may be necessary to consider using a fiberglass cast on the left forearm, hopefully to prevent patient access to the area in an effort to prevent self-inflicted reinjury. In this regard, we may need to recruit the services of an supplier specialist or cnc technician. The patient is not a smoker. Influenza vaccine was not administered today. Patient stands 6 feet 1 inches tall. He weighs 300 pounds. BMI is 39.6, which places the patient in a class II category. Weight loss has been recommended.
--- NOTE | 2017-06-23 15:30 | WC ---
14:35: Call received from Khushi garcia RN regarding Rx Levaquin written 06/06/17. Rx was not filled because prescription could not be found. Chart review shows Rx was ordered and written, however a copy of the Rx could not be found in the chart. Rx for Levaquin 500 mgm once daiy times 10 days was rewritten and faxed to [facility] shortly before this writing. Conformation of fax receipt received. Pharmacy instructions were for them to call Khushi when Rx is ready. Patient to RTC 07/07.
== END 2017-06-28 23:59 ==
LOC: WC 08:00
PROVIDERS: Family Provider Family Medicine Geriatric Medicine; PCP Family Medicine Geriatric Medicine; Visit Provider Surgery
DX: S51.852A Open bite of left forearm, initial encounter (principal); W50.3XXA Accidental bite by another person, initial encounter; E66.01 Morbid (severe) obesity due to excess calories; F90.9 Attention-deficit hyperactivity disorder, unspecified type; F84.0 Autistic disorder; F90.1 Attention-deficit hyperactivity disorder, predominantly hyperactive type; K43.9 Ventral hernia without obstruction or gangrene; I10 Essential (primary) hypertension; F72 Severe intellectual disabilities; K21.9 Gastro-esophageal reflux disease without esophagitis; L08.9 Local infection of the skin and subcutaneous tissue, unspecified; A49.01 Methicillin susceptible Staphylococcus aureus infection, unspecified site; Z79.899 Other long term (current) drug therapy; Z86.14 Personal history of Methicillin resistant Staphylococcus aureus infection; Z68.37 Body mass index [BMI] 37.0-37.9, adult; Z71.3 Dietary counseling and surveillance; Z91.19 Patient's noncompliance with other medical treatment and regimen
CPT/HCPCS: 11042; 29581; 87070; 87075; 87077; 87186; 87205; 87640; 99212; 99213; G0463

== ENCOUNTER 2017-07-21 08:27 | Outpatient (RCR) | payer MEDICARE, MEDICAID, SELFPAY ==
[2017-06-29 01:31] VITALS: BP 160/85; PULSE 89; RESP 20; TEMP 36.6; BMI 37.5
[2017-07-21 09:40] VITALS: BP 153/88; PULSE 98; RESP 18; TEMP 36.5; BMI 37.5
--- NOTE | 2017-07-21 10:09 | PCM.WC.HP ---
(1) Hypertension Status: Chronic Current Visit: No Qualifiers: Hypertension type: essential hypertension Code(s): I10 - Essential (primary) hypertension (2) Morbid obesity Status: Chronic Current Visit: No Code(s): E66.01 - Morbid (severe) obesity due to excess calories (3) Esophageal reflux Status: Chronic Current Visit: No Code(s): K21.9 - Gastro-esophageal reflux disease without esophagitis (4) Obsessive compulsive disorder Status: Chronic Current Visit: No Code(s): F42.9 - Obsessive-compulsive disorder, unspecified (5) Severe mental retardation Status: Chronic Current Visit: No Code(s): F72 - Severe intellectual disabilities (6) Open arm wound Status: Acute Current Visit: Yes Qualifiers: Encounter type: subsequent encounter Laterality: left Qualified Code(s): S41.102D - Unspecified open wound of left upper arm, subsequent encounter Code(s): S41.109A - Unspecified open wound of unspecified upper arm, initial encounter (7) Bite wound of forearm Status: Acute Current Visit: Yes Qualifiers: Laterality: left Code(s): S51.859A - Open bite of unspecified forearm, initial encounter (8) Hyperactivity (behavior) Status: Chronic Current Visit: No Code(s): F90.9 - Attention-deficit hyperactivity disorder, unspecified type (9) Autism Status: Chronic Current Visit: No Code(s): F84.0 - Autistic disorder (10) ADHD Status: Chronic Current Visit: No Qualifiers: (11) Ventral hernia Status: Chronic Current Visit: No Qualifiers: Code(s): K43.9 - Ventral hernia without obstruction or gangrene (12) History of MRSA infection Status: Chronic Current Visit: No Code(s): Z86.14 - Personal history of Methicillin resistant Staphylococcus aureus infection History of Present Illness Date of Service: 07/21/17 Chief Complaint: Open bite wound of the left forearm History of Wound: This is a 52-year-old morbidly obese, mentally retarded white male with a wound on the left forearm. It has been present for approximately 1-2 months. It appears as though the wound is self-inflicted, the result of the patient biting his left forearm. It has failed to heal appropriately. The patient chronically picks and bites at his wounds, thus impairing healing. He has a history of such wounds in the past. Several years ago, the patient had a wound on the dorsum of his left hand, which became infected with MRSA, and required surgical intervention. The patient is a resident of [facility]. The patient is said to have 3 abdominal wall hernias, for which surgical intervention is contemplated in the near future at [facility]. The goal is to achieve healing of the patient's left arm wounds prior to any surgical intervention for hernia repair. The patient has been noncompliant. He has repeatedly removed the Aaron wrap and 2 layer wraps which have been applied to his left arm to prevent biting and scratching. 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 Culture results from the patient's initial visit revealed the presence of staph aureus, for which we prescribed Levaquin 500 mg p.o. daily. The antibiotic was taken to completion. Nasal swab was negative for MRSA. Past Medical History Past Medical History: Chronic Problems Hypertension (Chronic) Morbid obesity (Chronic) History of appendicitis (Chronic) history of cellulitis of leg (Chronic) Esophageal reflux (Chronic) Obsessive compulsive disorder (Chronic) Severe mental retardation (Chronic) Hyperactivity (behavior) (Chronic) Autism (Chronic) ADHD (Chronic) Ventral hernia (Chronic) History of MRSA infection (Chronic) Surgical History: appendectomy, - - The patient has had surgery on the dorsum of his left hand in the past related to a wound which became infected with MRSA. Allergies/Adverse Reactions: Allergies haloperidol Allergy (Verified 05/15/14 20:06) Unknown haloperidol lactate [From Haldol] Allergy (Verified 09/09/14 19:10) Unknown NOVOPARADOL Allergy (Uncoded 02/28/17 00:28) Unknown Home Medications: Ambulatory Orders Medication Instructions Recorded Loratadine [Claritin] 10 mg PO DAILY 05/04/14 Melatonin/Pyridoxine [Melatonin 3 2 each PO QHS 05/04/14 mg Tablet] Valsartan/Hydrochlorothiazide 1 tablet PO QHS 05/04/14 [Diovan Hct 80-12.5 MG Tablet] Calcium Carb/Vitamin D 1 tab PO BIDCM 09/09/14 [Caltrate-600 With Vit D Tab] Gabapentin [Neurontin] 100 mg PO BIDCM 09/09/14 Gabapentin [Neurontin] 200 mg PO QHS 09/09/14 Tamsulosin HCl [Flomax] 0.4 mg PO DAILY 09/09/14 Certagen 1 tab PO DAILY 06/02/16 Dextroamphetamine Sulfate 15 mg PO TID 02/28/17 [Dexedrine] Dutasteride [Avodart] 0.5 mg PO DAILY 02/28/17 Paroxetine HCl [Paxil] 20 mg PO DAILY 06/01/17 - Family History Maternal Unknown, - - The patient is unable to give history related to his parents. It is known that both parents are alive. Their medical histories are unknown. Smoking Status: Never smoker Tobacco Use: Non-smoker Review of Systems Constitutional: Denies: Chills, Fever, Weight Change Eyes: Denies: Pain, Vision Change HEENT: Denies: Difficulty Hearing, Difficulty Swallowing, Sinus Congestion Cardiovascular: Denies: Chest Pain, Palpitations Respiratory: Denies: Cough, Shortness of Breath Gastrointestinal: Denies: Diarrhea, Nausea, Vomiting Genitourinary: Denies: Dysuria, Hematuria Endocrine: Denies: Heat/ Cold Intolerance, Polydipsia, Polyuria Hematologic/ Lymphatic: Denies: Easy Bruising, Easy Bleeding - Physical Exam Vital Signs Temp Pulse Resp BP 97.7 F L 98 18 153/88 H 07/21/17 09:40 07/21/17 09:40 07/21/17 09:40 07/21/17 09:40 General: Alert, No apparent distress, Well developed, Well nourished, Non-Cooperative HEENT: Atraumatic, PERRLA, EOMI, Normocephalic Oral: Moist Mucosa Neck: No JVD Lungs: Normal air movement Abdomen: Non-Distended Extremities: No clubbing, No cyanosis, No edema, No Calf Tenderness, - - Patient has several superficial excoriations on his left forearm. However, there are no shania open wounds or ulcerations. There is no sign of infection or cellulitis. Wound Measurements and Assessment JORDY - Nurse 1 - General Ulcer Measurement Start: 07/21/17 08:49 Freq: Status: Active Protocol: Activity Type Activity Date Activity User E-Sign Co-Sign Detail Recorded Client Recorded Date Recorded By Document 07/21/17 09:40 DV [id number] 07/21/17 09:47 DV 07/21/17 09:40 Wound Center Nurse 1 [Ulcer Assessment Protocol: JORDY.WD.LOC] #2 LFA CLUSTER -Combined with other wound No -Current Size (cm) - Length 21.0 -Current Size (cm) - Width 5.0 -Current Size (cm) - Depth 0.1 -Total Square Cm 105.00 -Photo Taken Yes -Epithelialization None Present -Tunneling No -Undermining/Tunneling No -Circular Undermining No -Classification - Thickness Full Thickness without Exposed Support Structure -Exudate Amt Small (1-33%) -Exudate Type Sanguineous -Wound Margin Distinct, Outline Attached -Granulation Amt None Present (0 %) -Granulation Quality N/A -Slough/Fibrin Yes -Necrosis Amt Medium (34-66%) -Necrotic Tissue Type Adherent Slough -Structure Exposed None/Limited to Skin Breakdown -Texture (Yokasta-wound Skin Appearance) Assessed Scarring -Moisture (Yokasta-wound Skin Appearance Assessed ) Weeping -Color (Yokasta-wound Skin Appearance) No Abnormality Assessed -Temperature (Yokasta-wound Skin No Abnormality Appearance) (Pt Warm) -Tenderness on Palpation (Yokasta-wound No Skin Appearance) -Ulcer Cleansing Rinsed/ Irrigated with Saline -Foul Odor after Cleansing No -Anesthetic Used 4% Lidocaine Solution Neurological: Cranial nerves II-XII grossly intact, - - The patient is mentally and cognitively impaired Psych/Mental Status: Agitated, Impulsive, Irrational Behavior, Restless Debridement Note No debridement was completed today Assessment/Plan Active Problems Open arm wound (Acute) Bite wound of forearm (Acute) Assessment: This is a 52-year-old morbidly obese male with mental retardation, autism, ADHD, hyperactivity, and hypertension. He presented with an apparent self-inflicted bite wound to the left forearm. He has a history of MRSA. Swab cultures for aerobic and anaerobic growth were obtained, positive for staph aureus, and the patient has been treated with Levaquin. The patient has been noncompliant in maintaining an Aaron wrap and 2 layer wraps to the left forearm, and has self-inflicted additional trauma to the area. Ever, at this juncture, there has been improvement, and there are currently no open wounds or ulcerations, only several superficial abrasions. Plan: The patient is to be discharged. The challenge in the patient's subsequent care is deterence. He has a propensity to by, scratched, and pick and his skin, causing superficial wounds and ulcerations. Therefore, it is incumbent upon his caregivers to deter such behavior. To date, Aaron wrap and ultimately her wraps have been reasonably effective in determining the patient from inflicting further injury to himself, and have allowed the progression of the healing process. Thus, the patient is to be discharged at this time, and follow-up henceforth as needed. The patient is not a smoker. Influenza vaccine was not administered today. Patient stands 6 feet 1 inches tall. He weighs 300 pounds. BMI is 39.6, which places the patient in a class II category. Weight loss has been recommended.
--- NOTE | 2017-07-21 10:18 | HP.PCM_ITS ---
(1) Hypertension Status: Chronic Current Visit: No Qualifiers: Hypertension type: essential hypertension Code(s): I10 - Essential (primary) hypertension (2) Morbid obesity Status: Chronic Current Visit: No Code(s): E66.01 - Morbid (severe) obesity due to excess calories (3) Esophageal reflux Status: Chronic Current Visit: No Code(s): K21.9 - Gastro-esophageal reflux disease without esophagitis (4) Obsessive compulsive disorder Status: Chronic Current Visit: No Code(s): F42.9 - Obsessive-compulsive disorder, unspecified (5) Severe mental retardation Status: Chronic Current Visit: No Code(s): F72 - Severe intellectual disabilities (6) Open arm wound Status: Acute Current Visit: Yes Qualifiers: Encounter type: subsequent encounter Laterality: left Qualified Code(s): S41.102D - Unspecified open wound of left upper arm, subsequent encounter Code(s): S41.109A - Unspecified open wound of unspecified upper arm, initial encounter (7) Bite wound of forearm Status: Acute Current Visit: Yes Qualifiers: Laterality: left Code(s): S51.859A - Open bite of unspecified forearm, initial encounter (8) Hyperactivity (behavior) Status: Chronic Current Visit: No Code(s): F90.9 - Attention-deficit hyperactivity disorder, unspecified type (9) Autism Status: Chronic Current Visit: No Code(s): F84.0 - Autistic disorder (10) ADHD Status: Chronic Current Visit: No Qualifiers: (11) Ventral hernia Status: Chronic Current Visit: No Qualifiers: Code(s): K43.9 - Ventral hernia without obstruction or gangrene (12) History of MRSA infection Status: Chronic Current Visit: No Code(s): Z86.14 - Personal history of Methicillin resistant Staphylococcus aureus infection History of Present Illness Date of Service: 07/21/17 Chief Complaint: Open bite wound of the left forearm History of Wound: This is a 52-year-old morbidly obese, mentally retarded white male with a wound on the left forearm. It has been present for approximately 1- 2 months. It appears as though the wound is self-inflicted, the result of the patient biting his left forearm. It has failed to heal appropriately. The patient chronically picks and bites at his wounds, thus impairing healing. He has a history of such wounds in the past. Several years ago, the patient had a wound on the dorsum of his left hand, which became infected with MRSA, and required surgical intervention. The patient is a resident of [facility]. The patient is said to have 3 abdominal wall hernias, for which surgical intervention is contemplated in the near future at [facility]. The goal is to achieve healing of the patient's left arm wounds prior to any surgical intervention for hernia repair. The patient has been noncompliant. He has repeatedly removed the Aaron wrap and 2 layer wraps which have been applied to his left arm to prevent biting and scratching. 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 Culture results from the patient 's initial visit revealed the presence of staph aureus, for which we prescribed Levaquin 500 mg p.o. daily. The antibiotic was taken to completion. Nasal swab was negative for MRSA. Past Medical History Past Medical History: Chronic Problems Hypertension (Chronic) Morbid obesity (Chronic) History of appendicitis (Chronic) history of cellulitis of leg (Chronic) Esophageal reflux (Chronic) Obsessive compulsive disorder (Chronic) Severe mental retardation (Chronic) Hyperactivity (behavior) (Chronic) Autism (Chronic) ADHD (Chronic) Ventral hernia (Chronic) History of MRSA infection (Chronic) Surgical History: appendectomy, - - The patient has had surgery on the dorsum of his left hand in the past related to a wound which became infected with MRSA. Allergies/Adverse Reactions: Allergies haloperidol Allergy (Verified 05/15/14 20:06) Unknown haloperidol lactate [From Haldol] Allergy (Verified 09/09/14 19:10) Unknown NOVOPARADOL Allergy (Uncoded 02/28/17 00:28) Unknown Home Medications: Ambulatory Orders Medication Instructions Recorded Loratadine [Claritin] 10 mg PO DAILY 05/04/14 Melatonin/Pyridoxine [Melatonin 3 2 each PO QHS 05/04/14 mg Tablet] Valsartan/Hydrochlorothiazide 1 tablet PO QHS 05/04/14 [Diovan Hct 80-12.5 MG Tablet] Calcium Carb/Vitamin D 1 tab PO BIDCM 09/09/14 [Caltrate-600 With Vit D Tab] Gabapentin [Neurontin] 100 mg PO BIDCM 09/09/14 Gabapentin [Neurontin] 200 mg PO QHS 09/09/14 Tamsulosin HCl [Flomax] 0.4 mg PO DAILY 09/09/14 Certagen 1 tab PO DAILY 06/02/16 Dextroamphetamine Sulfate 15 mg PO TID 02/28/17 [Dexedrine] Dutasteride [Avodart] 0.5 mg PO DAILY 02/28/17 Paroxetine HCl [Paxil] 20 mg PO DAILY 06/01/17 - Family History Maternal Unknown, - - The patient is unable to give history related to his parents. It is known that both parents are alive. Their medical histories are unknown. Smoking Status: Never smoker Tobacco Use: Non-smoker Review of Systems Constitutional: Denies: Chills, Fever, Weight Change Eyes: Denies: Pain, Vision Change HEENT: Denies: Difficulty Hearing, Difficulty Swallowing, Sinus Congestion Cardiovascular: Denies: Chest Pain, Palpitations Respiratory: Denies: Cough, Shortness of Breath Gastrointestinal: Denies: Diarrhea, Nausea, Vomiting Genitourinary: Denies: Dysuria, Hematuria Endocrine: Denies: Heat/ Cold Intolerance, Polydipsia, Polyuria Hematologic/ Lymphatic: Denies: Easy Bruising, Easy Bleeding - Physical Exam Vital Signs Temp Pulse Resp BP 97.7 F L 98 18 153/88 H 07/21/17 09:40 07/21/17 09:40 07/21/17 09:40 07/21/17 09:40 General: Alert, No apparent distress, Well developed, Well nourished, Non- Cooperative HEENT: Atraumatic, PERRLA, EOMI, Normocephalic Oral: Moist Mucosa Neck: No JVD Lungs: Normal air movement Abdomen: Non-Distended Extremities: No clubbing, No cyanosis, No edema, No Calf Tenderness, - - Patient has several superficial excoriations on his left forearm. However, there are no shania open wounds or ulcerations. There is no sign of infection or cellulitis. Wound Measurements and Assessment JORDY - Nurse 1 - General Ulcer Measurement Start: 07/21/17 08:49 Freq: Status: Active Protocol: Activity Type Activity Date Activity User E-Sign Co-Sign Detail Recorded Client Recorded Date Recorded By Document 07/21/17 09:40 DV [id number] 07/21/17 09:47 DV 07/21/17 09:40 Wound Center Nurse 1 [Ulcer Assessment Protocol: JORDY.WD.LOC] #2 LFA CLUSTER -Combined with other wound No -Current Size (cm) - Length 21.0 -Current Size (cm) - Width 5.0 -Current Size (cm) - Depth 0.1 -Total Square Cm 105.00 -Photo Taken Yes -Epithelialization None Present -Tunneling No -Undermining/Tunneling No -Circular Undermining No -Classification - Thickness Full Thickness without Exposed Support Structure -Exudate Amt Small (1-33%) -Exudate Type Sanguineous -Wound Margin Distinct, Outline Attached -Granulation Amt None Present (0 %) -Granulation Quality N/A -Slough/Fibrin Yes -Necrosis Amt Medium (34-66%) -Necrotic Tissue Type Adherent Slough -Structure Exposed None/Limited to Skin Breakdown -Texture (Yokasta-wound Skin Appearance) Assessed Scarring -Moisture (Yokasta-wound Skin Appearance Assessed ) Weeping -Color (Yokasta-wound Skin Appearance) No Abnormality Assessed -Temperature (Yokasta-wound Skin No Abnormality Appearance) (Pt Warm) -Tenderness on Palpation (Yokasta-wound No Skin Appearance) -Ulcer Cleansing Rinsed/ Irrigated with Saline -Foul Odor after Cleansing No -Anesthetic Used 4% Lidocaine Solution Neurological: Cranial nerves II-XII grossly intact, - - The patient is mentally and cognitively impaired Psych/Mental Status: Agitated, Impulsive, Irrational Behavior, Restless Debridement Note No debridement was completed today Assessment/Plan Active Problems Open arm wound (Acute) Bite wound of forearm (Acute) Assessment: This is a 52-year-old morbidly obese male with mental retardation, autism, ADHD, hyperactivity, and hypertension. He presented with an apparent self-inflicted bite wound to the left forearm. He has a history of MRSA. Swab cultures for aerobic and anaerobic growth were obtained, positive for staph aureus, and the patient has been treated with Levaquin. The patient has been noncompliant in maintaining an Aaron wrap and 2 layer wraps to the left forearm, and has self-inflicted additional trauma to the area. Ever, at this juncture, there has been improvement, and there are currently no open wounds or ulcerations, only several superficial abrasions. Plan: The patient is to be discharged. The challenge in the patient's subsequent care is deterence. He has a propensity to by, scratched, and pick and his skin, causing superficial wounds and ulcerations. Therefore, it is incumbent upon his caregivers to deter such behavior. To date, Aaron wrap and ultimately her wraps have been reasonably effective in determining the patient from inflicting further injury to himself, and have allowed the progression of the healing process. Thus, the patient is to be discharged at this time, and follow-up henceforth as needed. The patient is not a smoker. Influenza vaccine was not administered today. Patient stands 6 feet 1 inches tall. He weighs 300 pounds. BMI is 39.6, which places the patient in a class II category. Weight loss has been recommended.
== END 2017-07-29 23:59 ==
LOC: WC 08:27
PROVIDERS: Family Provider Family Medicine Geriatric Medicine; PCP Family Medicine Geriatric Medicine; Visit Provider Surgery
DX: S51.852A Open bite of left forearm, initial encounter (principal); W50.3XXA Accidental bite by another person, initial encounter; Y92.9 Unspecified place or not applicable; F84.0 Autistic disorder; Z86.14 Personal history of Methicillin resistant Staphylococcus aureus infection; I10 Essential (primary) hypertension; E66.01 Morbid (severe) obesity due to excess calories; Z68.37 Body mass index [BMI] 37.0-37.9, adult; Z71.3 Dietary counseling and surveillance; K21.9 Gastro-esophageal reflux disease without esophagitis; F72 Severe intellectual disabilities; F42.9 Obsessive-compulsive disorder, unspecified; F90.9 Attention-deficit hyperactivity disorder, unspecified type; K43.9 Ventral hernia without obstruction or gangrene; F42.8 Other obsessive-compulsive disorder; Z79.899 Other long term (current) drug therapy; Z91.19 Patient's noncompliance with other medical treatment and regimen
CPT/HCPCS: 99212; G0463

== ENCOUNTER → 2017-10-07 15:56 | Outpatient (CLI) | payer MEDICARE, MEDICAID, SELFPAY ==
[2017-10-07 16:16] LABS: Absolute Lymphocyte Count 1.57 X10^3/ul (0.83-4.51); Absolute Neutrophil Count 5.4 X10^3/uL (2.0-7.7); Basophil# 0.01 X10^3/uL; Basophil% 0.1 % (0-1); Eosinophil# 0.12 X10^3/uL; Eosinophils% 1.5 % (0-5); Hematocrit 46.6 % (40-54); Hemoglobin 15.5 g/dl (13.0-16.5); Lymphocyte # 1.57 X10^3/ul (4.0); Lymphocyte % 19.9 % (19-41); Mean Corp Hgb Conc 33.3 g/gl (32-36); Mean Corpuscular Hgb 28.4 pg (27.0-32.0); Mean Corpuscular Volume 85.5 fL (80-94); Mean Platelet Vol. 10.5 fl (6.2-12.0); Monocyte# 0.73 X10^3/uL; Monocyte% 9.3 % (0-10); Neutrophil # 5.43 X10^3/uL (2.7-7.7); Neutrophil % 68.9 % (47-70); POSITIVE COUNT NO; POSITIVE DIFFERENTIAL NO; POSITIVE MORPHOLOGY NO; Platelet Count 159 K/mm3 (150-450); RBC Distribution Width CV 14.3 % (11.6-14.6); RBC Distribution Width SD 44.2 fl (35.1-43.9); Red Blood Count 5.45 M/mm3 (4.6-6.2); White Blood Count 7.9 K/mm3 (4.4-11.0)
[2017-10-07 16:33] LABS: ALB/GLOB Ratio 1.2 RATIO (0.9-2.4); AST(SGOT) 9 U/L (15-37); Alanine Aminotransfer ALT/SGPT 27 U/L (16-61); Albumin, Serum 3.7 g/dL (3.2-5.0); Alkaline Phosphatase 109 U/L (45-117); Anion Gap 8 (5-15); BUN 21 mg/dL (7-18); BUN/Creat Ratio 22.5 RATIO (10-20); Calcium,Total 8.2 mg/dL (8.5-10.1); Chloride 106 mmol/L (98-107); Creatinine, Serum 0.93 mg/dL (0.70-1.30); EST Glomerular Filtration Rate 90 mL/min (>60); Est Glom Filt Rate - Afr Amer 109 mL/min (>60); Globulin 3.2 g/dL (2.2-4.2); Glucose 98 mg/dL (74-106); Potassium 3.8 mmol/L (3.5-5.1); Protein, Total 6.9 g/dL (6.4-8.2); Sodium Level 141 mmol/L (136-145); Thyroid Stim Hormone (TSH) 1.92 uIU/mL (0.358-3.74)
[2017-10-09 11:31] LABS: Hep C Antibodies <0.1 s/co ratio (0.0-0.9)
== END ==
PROVIDERS: Family Provider Family Medicine Geriatric Medicine; PCP Family Medicine Geriatric Medicine; Visit Provider Family Medicine Geriatric Medicine
DX: I10 Essential (primary) hypertension (principal); Z13.89 Encounter for screening for other disorder
CPT/HCPCS: 36415; 80053; 84443; 85025; 86803

== ENCOUNTER → 2018-02-10 13:06 | Outpatient (CLI) | payer MEDICARE, MEDICAID, SELFPAY ==
--- NOTE | 2018-02-10 13:00 | SP.MBSS_ITS ---
PRIMARY / SECONDARY DIAGNOSIS: dysphagia (R13.10) REFERRING PHYSICIAN: Dr. Gerald Wesley MD CURRENT DIET: regular textures, thin liquids DENTITION: WFL MENTAL STATUS: impaired RESPIRATORY STATUS: O2 via room air PREVIOUS MODIFIED BARIUM SWALLOW STUDY: none REASON FOR REFERRAL: Patient is a 53 year old male referred for a modified barium swallow (MBS) study to objectively assess the Patients oropharyngeal swallow function under fluoroscopy secondary to concerns for PO intake intolerance. Patient resides in a retirement, with a provided caregiver present for the study; detail complaints expressed by the Patient in regards to PO intolerance (coughing during intake), with no observed events reported or documented by staff. Patient is very pleasant and interactive, jovial, well-nourished with no recent fluctuations in weight reported by staff. MEDICAL HISTORY: Autism with obsessive compulsive disorder traits, moderate mental retardation, attention deficit hyperactivity disorder, hypertension, status post appendectomy , abdominal ulceration, obstructive sleep apnea with CPAP. STUDY FINDINGS: Patient participated in a Modified Barium Swallow (MBS) study on 02/10/2018. Dr. Barrera was the radiologist present for this evaluation. This study was recorded in the lateral view and images were sent to PACs for storage. The following consistencies were presented to this patient for analysis of oropharyngeal swallow function: thin liquids, nectar thickened liquids, pudding , and a regular textured, Lyn [place] cookie. Results of the MBS are as follows: PENETRATION / ASPIRATION SCALE (SELLERS): 1 = does not enter airway 2 = enters airway/above vocal folds/ejected 3 = enters airway/above vocal folds/not ejected 4 = enters airway/contacts vocal folds/ejected 5 = enters airway/contacts vocal folds/not ejected 6 = enters airway/below vocal folds/ejected 7 = enters airway/below vocal folds/not ejected despite effort 8 = enters airway/below vocal folds/no effort PENETRATION / ASPIRATION SCALE (SCORE): Thin liquid - 5 mL tsp.: NA Thin liquids via cup (sequential swallows): 3 Thin liquids via cup (sequential swallows): 5 Thin liquids via cup (sequential swallows): 2 Thin liquids via cup (single sip): 1 Thin liquids via cup (sequential swallows): 2 Thin liquids via cup (sequential swallows): 3 [place] thickened liquids via cup (single sip): NA [place] thickened liquids via cup (single sip): 1 [place] thickened liquids via cup (sequential swallows): 1 Pudding via spoon: NA Pudding via spoon: 1 Regular textured cookie: 1 Thin liquids via straw (sequential swallows): 1 * Majority of views compromised due to consistent movement and self- placement outside of fluoroscopy suite, complicating the sensitivity of the current study. IMPRESSION: DIAGNOSIS: mild to moderate oropharyngeal dysphagia (R13.12) ORAL PHASE CHARACTERIZED BY: LABIAL SEAL: no labial escape TONGUE CONTROL DURING BOLUS MANIPULATION: escape to lateral buccal cavity/ floor of mouth BOLUS PREPARATION / MASTICATION: timely and efficient chewing and mashing BOLUS TRANSPORT / LINGUAL MOTION: brisk tongue motion ORAL RESIDUE: trace residue lining oral structures PHARYNGEAL PHASE CHARACTERIZED BY: INITIATION OF PHARYNGEAL SWALLOW: bolus head in valleculae at first hyoid excursion SOFT PALATE ELEVATION: no bolus between soft palate and pharyngeal wall LARYNGEAL ELEVATION: partial superior movement of thyroid cartilage/partial approximation of arytenoids cartilage to epiglottic petiole ANTERIOR HYOID EXCURSION: partial anterior movement EPIGLOTTIC MOVEMENT: intermittent partial epiglottic inversion LARYNGEAL VESTIBULE CLOSURE AT HEIGHT OF SWALLOW: incomplete laryngeal vestibule closure with narrow column of air/contrast in laryngeal vestibule PHARYNGEAL STRIPPING WAVE: pharyngeal stripping wave appears present / complete PHARYNGOESOPHAGEAL SEGMENT OPENING: complete distension and complete duration with no obstruction of flow TONGUE BASE RETRACTION: trace column of contrast between tongue base and posterior pharyngeal wall PHARYNGEAL RESIDUE: majority of contrast within or on pharyngeal structures on one occasion in which the Patient purposefully made an audible gulping sound with pureed textures, resulting in bolus dyssynchrony and resulting collection of approximately half of the bolus within the pyriforms; otherwise adequate clearance with trace residue within or on pharyngeal structures post deglutition. ESOPHAGEAL PHASE CHARACTERIZED BY: ESOPHAGEAL BOLUS CLEARANCE IN THE UPRIGHT POSITION: could not view EFFECTS OF TREATMENT STRATEGIES ATTEMPTED: Reduced bolus size = effective, though difficult to consistently implement. * unable to further execute strategies due to cognitive limitations. DIET TEXTURE RECOMMENDATIONS: Will recommend a regular textured, thin liquid diet. COMPENSATORY STRATEGIES RECOMMENDED: Direct supervision with cueing to reduce bolus volume (single sips) and rate of ingestion, seated upright at 90 degrees during PO intake, remain upright for 30-60 minutes post meal (GERD precaution) INTERPRETATION OF RESULTS: Patient presents with mild to moderate oropharyngeal dysphagia (R13.12) likely attributed to developmental disabilities in the absence of other clear dysphagia related etiologies complicated by baseline cognitive impairments. Entirety of the study complicated by either an inability to consistently follow verbal directions (though more so due to the interactive personality complicated by cognitive impairment demonstrated during the study vs. traditional non-compliance), with full interpretation complicated by intermittent periods in which the laryngeal vestibule was unable to be visualized by either obstruction by the shoulder or completely out of view due to frequent movements. This additionally complicated MBSImP scoring, as the frequency and consistency of movements may have had a significant impact on the validity of the stated findings. Furthermore, when in view, the Patient would often lift his head upwards, which may additionally have had a negative impacted pharyngeal swallow timing. Clear pharyngeal phase deficits consisted of reduced closure of the airway during deglutition attributed to reduced hyolaryngeal excursion resulting in inconsistent epiglottic inversion and poor laryngeal vestibule closure / pressure directly contributing to consistent prandial penetration during thin liquid trials, with inconsistent laryngeal vestibule pressure generated to expel penetrated material. All deficits ameliorated with bolus volume adjustments in addition to adjustments in viscosity. Patient demonstrated insufficient pressure generated during cued cough indicating dystussia, though again findings possibly complicated by cognitive impairments, as the Patient was noted to purposefully belch vs. cough during the initial attempt. No aspiration appreciated throughout trials, unable to definitively rule out silent aspiration. RECOMMENDATIONS: While the Patient was noted to demonstrate improved consistency in regards to tolerance of nectar vs. single / reduced bolus volumes of thin liquid, this clinician would recommend proceeding with placement on thin liquids due to the relative good health reported by the Patients caregivers in addition to expected complications with implementation of nectar thickened liquids, as the Patient would be at much higher risk of malnutrition and dehydration (due to early satiety and expected outright non-compliance). Would consider adaptive devices that may reduce flow rate / bolus size selection found to be appropriate / suitable upon clinical assessment. If this is unsuccessful, the Patient may require downgrade to nectar thickened liquids. Patient requires intensive skilled speech-language intervention targeting continued diet texture management; Patient and caregiver training and implementation of recommended compensatory strategies. Would consider training and implementation of oropharyngeal strengthening exercises to facilitate improved oropharyngeal strength and coordination, though sufficient participation is rather unlikely when considering the Patients baseline cognitive impairments. ADDITIONAL COMMENTS/RECOMMENDATIONS: Results and recommendations were discussed with the Patient immediately following MBS completion, with the Patient verbalizing understanding and agreement with all recommendations and education provided. IMAGE COUNT: [id number] G-CODES: SWALLOWING [id number] Current Status: CJ SWALLOWING [id number] Goal Status: CI SWALLOWING [id number] Discharge Status: CITLALY Gonzalez M.A., [facility] MACHINE OPERATOR [facility] Speech-Language Pathology Department [email or web address]
== END ==
PROVIDERS: Family Provider Family Medicine Geriatric Medicine; PCP Family Medicine Geriatric Medicine; Visit Provider Family Medicine
DX: R13.10 Dysphagia, unspecified (principal)
CPT/HCPCS: 74230; 92611; G8996; G8997; G8998

== ENCOUNTER → 2018-05-17 15:23 | Outpatient (CLI) | payer MEDICARE, MEDICAID, SELFPAY ==
[2017-08-13 13:57] VITALS: BMI 45.3
[2018-05-17 17:24] LABS: PSA,Total - Annual Screen 2.33 ng/mL (0.00-4.00)
== END ==
PROVIDERS: Family Provider Family Medicine; PCP Family Medicine; Referring Provider Urology; Visit Provider Urology
DX: Z12.5 Encounter for screening for malignant neoplasm of prostate (principal)
CPT/HCPCS: 36415; 84153; G0103

== ENCOUNTER 2018-08-25 14:50 | Inpatient (IN) | payer MEDICARE, MEDICAID, SELFPAY ==
[2018-08-05 14:01] VITALS: BMI 45.5
[2018-08-25] VITALS (12 sets, daily range): BP systolic 114–179; BP diastolic 83–108; PULSE 72–118; RESP 16–18; TEMP 36.2–37.5; O2SAT 92–98; BMI 46.0
--- NOTE | 2018-08-25 09:02 | EKG12_ITS ---
Test Reason : PREOP Blood Pressure : / mmHG Vent. Rate : 079 BPM Atrial Rate : 079 BPM P-R Int : 178 ms QRS Dur : 120 ms QT Int : 386 ms P-R-T Axes : 024 -37 031 degrees QTc Int : 442 ms Normal sinus rhythm Left axis deviation Low voltage QRS Abnormal ECG When compared with ECG of 02-JUN-2016 10:02, No significant change was found Confirmed by KAL ALFORD, URIEL ([id number]), make up editor ZEHRA NEWMAN ([id number]) on 08/31/2018 1:49:28 PM Referred By: Rafat Cooper Confirmed By:URIEL BOWDEN MD
[2018-08-25 10:17] LABS: Hematocrit 43.9 % (40-54); Hemoglobin 14.8 g/dl (13.0-16.5); Mean Corp Hgb Conc 33.7 g/gl (32-36); Mean Corpuscular Hgb 29.1 pg (27.0-32.0); Mean Corpuscular Volume 86.4 fL (80-94); Mean Platelet Vol. 10.9 fl (6.2-12.0); Platelet Count 143 K/mm3 (150-450); RBC Distribution Width CV 14.7 % (11.6-14.6); RBC Distribution Width SD 45.3 fl (35.1-43.9); Red Blood Count 5.08 M/mm3 (4.6-6.2); White Blood Count 6.7 K/mm3 (4.4-11.0)
[2018-08-25 10:23] LABS: Scan Indicated on CBC? Y/N NO
[2018-08-25] MEDS: Cefazolin 2 GM in 0.9% Normal Saline 100 ML IV (10:57)
--- NOTE | 2018-08-25 12:01 | OP.PCM_ITS ---
Problem List (1) Ventral hernia Status: Chronic Qualifiers: Obstruction and gangrene presence: without obstruction or gangrene Report of Operation Date of Procedure: 08/25/18 Pre-Operative Diagnosis: Ventral hernia without obstruction or gangrene Post-Operative Diagnosis: Same x2 Surgery/Procedure Performed:: Repair of ventral hernias with mesh Type of Anesthesia:: General Anesthesiologist: Tyler Florentino Estimated Blood Loss (mL): < 25 cc Fluids Replaced: 1 liter LR Description of Procedure: Patient was brought into the operating room and placed in the supine position. Under excellent general trach intubation the abdomen was sterilely prepped and d raped in usual fashion. Local was injected above the umbilicus. Incision was made and carried down to the larger ventral hernia which was just above the umbilicus. I dissected circumferentially around this and lengthen the fascial incision cephalad until I encountered the second smaller ventral hernia I placed the hernia sacs back into the preperitoneal space. I grabbed the fascia with a Needham and created a preperitoneal window circumferentially around these defects and going through inferiorly through the umbilicus. I had excellent hemostasis. I fashioned a 11 cm x [address] hernia patch into the wound. I circumferentially tacked it to the fascia with #1 Nurolon's. Once again I had excellent hemostasis. I injected Exparel circumferentially along the fascia. I brought the subcu together with 2-0 Vicryl deep dermal stitches of 3-0 Vicryl then a running 4-0 Monocryl in the skin. Surgery went quite well he did lose hardly any blood the mesh laid completely flat but I think he is going to have an actually an excellent repair from this. - Admit VTE Documentation VTE Present on Admission: No VTE Mechan Device Prophylaxis: SCD's VTE Pharm Prophylaxis ordered?: No Reason prophylaxis not ordered:: Treatment Not Indicated
--- NOTE | 2018-08-25 14:54 | CASEMGMT ---
Social Work Note Pt is listed as being from [facility]. RN informed this worker that pt's family is wanting pt to go to [facility] for short term rehabilitation at discharge. VIJAY met with pt, pt's parents and pt's caregiver present in room. Pt's mom Urmila is listed as being pt's legal guardian. Urmila confirms that they wish for pt to discharge to [facility] for short term rehabilitation. SW explained Medicare requirements and pt's caregiver states that physician had informed them that pt would stay three midnights for Medicare. JARED Mariee called physician who confirms pt is able to stay three midnights. VIJAY placed a call to Sowmya at [facility]. Sowmya states that pt's family has been in contact with her already. VIJAY explained that physician is planning on keeping pt until Thursday. Sowmya states that as long as pt doesn't have any behaviors she is able to accept. SW informed Sowmya that this worker will fax updated clinicals tomorrow. Plan: [facility] Thursday Geri Womack E [employer] MARKETING MANAGER, TILE AND MOTTLE SUPERVISOR
--- NOTE | 2018-08-25 15:00 | PCM.PN.HOSP ---
Subjective: Patient is a 53 y/o male with a PMH of ELIAS and MRDD. He had ventral hernia repair with mesh on 08/25/18. Hospitalist service was consulted for medical management. Patient seen and examined. He was mumbling incoherently due to his MRDD. Unable to do review of systems on account of MRDD. Patient however looks to be comfortable and not in any significant pain. Vitals reviewed. Vitals/I&O's: Vital Signs Temp Pulse Resp BP Pulse Ox 97.8 F 75 16 148/92 H 98 08/25/18 13:15 08/25/18 13:15 08/25/18 13:15 08/25/18 13:15 08/25/18 13:15 Oxygen Flow Rate (L/min) 2 Oxygen Delivery Method Nasal Cannula Weight: 339 lb 1.135 oz Body Mass Index (BMI) 46.0 Intake and Output for Last 24 Hours 08/23/18 08/24/18 08/25/18 23:59 23:59 23:59 Intake Total 1700 / 1700 Balance 1700 / 1700 General: Alert, Cooperative, - - mumbling incoherently due to MRDD. Communication barrier due to MRDD. HEENT: Atraumatic, PERRLA, EOMI, Normocephalic Oral: Moist Mucosa Neck: Supple, No JVD, Negative Carotid Bruits Lungs: Clear to auscultation, Normal air movement, No rhonchi, No wheeze, No rales Cardiovascular: Regular rate, Regular Rhythm, Normal S1, Normal S2, No murmurs Abdomen: Bowel Sounds Present, Soft, - - has abdominal band in place. Surgical site dressing is clean. minimal tenderness on palpation. Extremities: No clubbing, No cyanosis, No edema, Capillary Refill Less than 3 Seconds Skin: No rashes, No breakdown Musculoskeletal: No Tenderness to Palpation of Joints or Extremities Lymphatic: No Cervical, Supraclavicular, or Inguinal Adenopathy Neurological: Cranial nerves II-XII grossly intact, Neuro grossly intact, Motor Exam 5/5 strength throughout Psych/Mental Status: - - MRDD Laboratory Results 08/25/18 09:55: WBC 6.7, RBC 5.08, Hgb 14.8, Hct 43.9, MCV 86.4, MCH 29.1, MCHC 33.7, RDW 14.7 H, RDW Differential 45.3 H, Plt Count 143 L, MPV 10.9 Current Medications Bisacodyl (Dulcolax) 10 mg PO HS PRN PRN Reason: CONSTIPATION Buspirone HCl (Buspar) 5 mg PO TID [facility] Finasteride (Proscar) 5 mg PO DAILY [facility] Gabapentin (Neurontin) 200 mg PO TID [facility] Hydralazine HCl (Apresoline Iv) 10 mg IV Q4H PRN PRN PRN Reason: SBP > 160 Hydrochlorothiazide () 12.5 mg PO HS [facility] Hydromorphone HCl (Dilaudid Inj) 1 - 2 mg IV Q2H PRN PRN PRN Reason: PAIN Hydroxyzine HCl (Atarax Tablet) 10 mg PO TID PRN PRN PRN Reason: ITCHING Cefazolin Sodium () 1 gm in 50 mls @ 150 mls/hr IV Q8H [facility] Stop: 08/26/18 03:19 Lactated Ringer's () 1,000 mls @ 60 mls/hr IV .[id number] [facility] Losartan Potassium (Cozaar) 25 mg PO HS [facility] Melatonin (Melatonin) 6 mg PO QHS [facility] Multi-Ingredient Cream (Eucerin) 1 applic TOPICAL TID [facility] Non-Formulary Medication (Dextroamphetamine Sulfate [Dexedrine]) 15 mg PO TID [facility] Ondansetron HCl (Zofran) 4 mg IV Q8H PRN PRN PRN Reason: NAUSEA Oxycodone HCl (Oxyir) 5 - 10 mg PO Q4H PRN PRN PRN Reason: SEVERE PAIN (6-10/10) Polyethylene Glycol (Miralax) 17 gm PO DAILY [facility] Sodium Chloride () 5 - 15 ml IV UD PRN PRN Reason: SALINE FLUSH Tamsulosin HCl (Flomax) 0.4 mg PO DAILY [facility] Capacity - Capacity Assessment Tool Can the patient make a choice & communicate that choice?: No Can the patient understand benefits, risks and alternatives?: No Can the patient make a logical, rational choice?: No Medical Necessity - Tobacco Use Smoking Status: Never smoker Assessment/Plan All Active Problems (Last Reviewed 08/17/18 @ 10:31 by Rafat Cooper MD) Bite wound of forearm (Acute) Open arm wound (Acute) 53-year-old admitted after ventral hernia repair. 1. Ventral abdominal hernia s/p mesh repair today is POD 0 general surgery on board pain management as per general surgery encourage incentive spirometer use PT/OT on board 2. Hypertension: BP is 145/83. Will resume home BP med of valsartan/HCTZ 80-12.5mg daily tomorrow. IV hydralazine prn 3. MRDD: stable. On Buspar and dextroamphetamine 4. BPH: on flomax and dutasteride. DVT prophylaxis: SCDs, per general surgery. Thank you for the courtesy of the consult. We will continue to follow with you. Code Visit Inpatient E&M: 39861 Subs Hosp L3
[2018-08-25] MEDS: busPIRone 5 MG Tablet PO ×2 (15:25→21:22)
[2018-08-25] MEDS: Gabapentin 100 MG Capsule 200 MG PO ×2 (15:25→21:23)
[2018-08-25] MEDS: oxyCODONE 5 MG Tablet PO ×2 (16:22→20:18)
[2018-08-25] MEDS: Cefazolin 1 GM/50 ML BAG IV (18:11)
[2018-08-25] MEDS: hydrALAZINE 20 MG/ML Vial 10 MG IV (18:11)
--- NOTE | 2018-08-25 19:00 | NURSING ---
Asked family to bring in pt's cpap.
[2018-08-25] MEDS: MELATONIN 3 MG TABLET 6 MG PO (21:22)
[2018-08-25] MEDS: hydroCHLOROthiazide 12.5mg 12.5 MG PO (21:22)
[2018-08-25] MEDS: Losartan Potassium 25 MG Tablet PO (21:22)
[2018-08-25] MEDS: hydrOXYzine 10 MG Tablet PO (22:50)
[2018-08-25] MEDS: HYDROmorphone 1 MG/ML Syringe IV (23:47)
[2018-08-25] MEDS: 0.9% NaCl Peripheral Flush Adult/Peds IV (23:47)
[2018-08-26] VITALS (8 sets, daily range): BP systolic 148–169; BP diastolic 88–120; PULSE 73–99; RESP 16–18; TEMP 36.8; O2SAT 75–100
[2018-08-26] MEDS: Cefazolin 1 GM/50 ML BAG IV (03:04)
[2018-08-26] MEDS: Lactated Ringers 1,000 ML 60 ML IV ×2 (03:07→22:55)
[2018-08-26] MEDS: oxyCODONE 5 MG Tablet PO ×4 (03:21→21:13)
[2018-08-26] MEDS: HYDROmorphone 1 MG/ML Syringe IV (05:23)
[2018-08-26] MEDS: 0.9% NaCl Peripheral Flush Adult/Peds IV (05:23)
[2018-08-26] MEDS: Gabapentin 100 MG Capsule 200 MG PO ×3 (05:23→21:13)
[2018-08-26] MEDS: busPIRone 5 MG Tablet PO ×3 (05:23→21:12)
[2018-08-26 06:13] LABS: Absolute Lymphocyte Count 1.02 X10^3/ul (0.83-4.51); Absolute Neutrophil Count 7.3 X10^3/uL (2.0-7.7); Basophil# 0.01 X10^3/uL; Basophil% 0.1 % (0-1); Eosinophil# 0.03 X10^3/uL; Eosinophils% 0.3 % (0-5); Hematocrit 43.1 % (40-54); Lymphocyte # 1.02 X10^3/ul (4.0); Lymphocyte % 10.9 % (19-41); Mean Corp Hgb Conc 32.5 g/gl (32-36); Mean Corpuscular Hgb 28.6 pg (27.0-32.0); Mean Corpuscular Volume 88.1 fL (80-94); Mean Platelet Vol. 10.7 fl (6.2-12.0); Monocyte# 0.93 X10^3/uL; Monocyte% 9.9 % (0-10); Neutrophil # 7.34 X10^3/uL (2.7-7.7); Neutrophil % 78.5 % (47-70); POSITIVE COUNT NO; POSITIVE DIFFERENTIAL NO; POSITIVE MORPHOLOGY NO; Platelet Count 145 K/mm3 (150-450); RBC Distribution Width CV 14.9 % (11.6-14.6); RBC Distribution Width SD 47.2 fl (35.1-43.9); Red Blood Count 4.89 M/mm3 (4.6-6.2); White Blood Count 9.4 K/mm3 (4.4-11.0)
[2018-08-26 06:29] LABS: Anion Gap 9 (5-15); BUN 13 mg/dL (7-18); BUN/Creat Ratio 17.2 RATIO (10-20); Calcium,Total 7.7 mg/dL (8.5-10.1); Chloride 107 mmol/L (98-107); Creatinine, Serum 0.75 mg/dL (0.70-1.30); EST Glomerular Filtration Rate 114 mL/min (>60); Est Glom Filt Rate - Afr Amer 138 mL/min (>60); Estimated Creatinine Clearance 123.59 ml/min; Glucose 149 mg/dL (74-106); Potassium 3.5 mmol/L (3.5-5.1); Sodium Level 140 mmol/L (136-145)
--- NOTE | 2018-08-26 07:48 | PCM.PN.HOSP ---
Subjective: Patient is a 53-year-old male with history of severe MRDD who underwent repair of ventral hernia with mesh by Dr. Cooper on 08/25/2018 the hospitalist service was consulted to assist with management of patient medical comorbidities 08/26 18 patient seen appears quite agitated; his blood pressure elevated this a.m. Objective: GENERAL: Appears quite agitated HEENT: Atraumatic; moist oral mucosa EYES; Anicteric, Normal Conjunctiva NECK; supple, normal thyroid, . RESPIRATORY: Diminished to auscultation bilaterally, CARDIOVASCULAR: Regular S1 S2, GI: soft, non-tender, normoactive bowel sounds, : No Renal angle tenderness; EXTREMITIES: No edema, no clubbing, no cyanosis. NEURO: Awake; no lateralizing signs. SKIN: Excoriations on the dorsal surface of the left hand PSYCH; agitated Vitals/I&O's: Vital Signs Temp Pulse Resp BP Pulse Ox 98.2 F 82 18 148/95 H 100 08/26/18 03:11 08/26/18 03:11 08/26/18 03:11 08/26/18 03:11 08/26/18 03:11 Oxygen Flow Rate (L/min) 2 Oxygen Delivery Method Nasal Cannula Weight: 153.8 kg Body Mass Index (BMI) 46.0 Intake and Output for Last 24 Hours 08/24/18 08/25/18 08/26/18 23:59 23:59 23:59 Intake Total 2150 / 2150 2274 / 2274 Output Total 300 / 300 Balance 1850 / 1850 2274 / 2274 Laboratory Results 08/25/18 09:55: WBC 6.7, RBC 5.08, Hgb 14.8, Hct 43.9, MCV 86.4, MCH 29.1, MCHC 33.7, RDW 14.7 H, RDW Differential 45.3 H, Plt Count 143 L, MPV 10.9 08/26/18 05:40: WBC 9.4, RBC 4.89, Hgb 14.0, Hct 43.1, MCV 88.1, MCH 28.6, MCHC 32.5, RDW 14.9 H, RDW Differential 47.2 H, Plt Count 145 L, MPV 10.7, Immature Gran % (Auto) 0.300, Neut % (Auto) 78.5 H, Lymph % (Auto) 10.9 L, [place] % (Auto) 9.9, Eos % (Auto) 0.3, Baso % (Auto) 0.1, Absolute Neuts (auto) 7.3, Absolute Lymphs (auto) 1.02, Total Counted Not Reportable 08/26/18 05:40: Sodium 140, Potassium 3.5, Chloride 107, Carbon Dioxide 24.0, Anion Gap 9, BUN 13, Creatinine 0.75, Estim Creat Clear Calc 123.59, Est GFR (MDRD) Af Amer 138, Est GFR (MDRD) Non-Af 114, BUN/Creatinine Ratio 17.2, Glucose 149 H, Calcium 7.7 L Current Medications Bisacodyl (Dulcolax) 10 mg PO HS PRN PRN Reason: CONSTIPATION Buspirone HCl (Buspar) 5 mg PO TID [facility] Last Admin: 08/26/18 05:23 Dose: 5 mg Finasteride (Proscar) 5 mg PO DAILY [facility] Gabapentin (Neurontin) 200 mg PO TID [facility] Last Admin: 08/26/18 05:23 Dose: 200 mg Hydralazine HCl (Apresoline Iv) 10 mg IV Q4H PRN PRN PRN Reason: SBP > 160 Last Admin: 08/25/18 18:11 Dose: 10 mg Hydrochlorothiazide () 12.5 mg PO HS [facility] Last Admin: 08/25/18 21:22 Dose: 12.5 mg Hydromorphone HCl (Dilaudid Inj) 1 - 2 mg IV Q2H PRN PRN PRN Reason: PAIN Last Admin: 08/26/18 05:23 Dose: 1 mg Hydroxyzine HCl (Atarax Tablet) 10 mg PO TID PRN PRN PRN Reason: ITCHING Last Admin: 08/25/18 22:50 Dose: 10 mg Lactated Ringer's () 1,000 mls @ 60 mls/hr IV .[id number] [facility] Last Admin: 08/26/18 03:07 Dose: 60 mls/hr Losartan Potassium (Cozaar) 25 mg PO HS [facility] Last Admin: 08/25/18 21:22 Dose: 25 mg Melatonin (Melatonin) 6 mg PO QHS [facility] Last Admin: 08/25/18 21:22 Dose: 6 mg Multi-Ingredient Cream (Eucerin) 1 applic TOPICAL TID [facility] Last Admin: 08/26/18 05:27 Dose: 1 applicatio Non-Formulary Medication (Dextroamphetamine Sulfate [Dexedrine]) 15 mg PO TID [facility] Ondansetron HCl (Zofran) 4 mg IV Q8H PRN PRN PRN Reason: NAUSEA Oxycodone HCl (Oxyir) 5 - 10 mg PO Q4H PRN PRN PRN Reason: SEVERE PAIN (6-10/10) Last Admin: 08/26/18 03:21 Dose: 10 mg Polyethylene Glycol (Miralax) 17 gm PO DAILY [facility] Sodium Chloride () 5 - 15 ml IV UD PRN PRN Reason: SALINE FLUSH Last Admin: 08/26/18 05:23 Dose: 10 ml Tamsulosin HCl (Flomax) 0.4 mg PO DAILY [facility] Medical Necessity - Tobacco Use Smoking Status: Never smoker Assessment/Plan All Active Problems (Last Reviewed 08/17/18 @ 10:31 by Rafat Cooper MD) Bite wound of forearm (Acute) Open arm wound (Acute) Patient is a 53-year-old male who underwent repair of ventral hernia with mesh by Dr. Cooper on 08/25/2018 the hospitalist service was consulted to assist with management of patient medical comorbidities 1. Status post repair of ventral hernia with mesh by Dr. Cooper on 08/25/2018. Patient postoperative orders regarding pain management as well as diet orders defer to general surgery 2. Hypertension-blood pressure control remains labile, home medications continued in addition to hydralazine as needed 3. MRDD with intermittent agitations patient is on buspirone supportive care 4. BPH patient is on flomax and dutasteride. 5. Obesity with BMI of 46 6. DVT prophylaxis: SCDs, per general surgery. Active Medications Bisacodyl (Dulcolax) 10 mg PO HS PRN PRN Reason: CONSTIPATION Buspirone HCl (Buspar) 5 mg PO TID [facility] Last Admin: 08/26/18 05:23 Dose: 5 mg Finasteride (Proscar) 5 mg PO DAILY [facility] Gabapentin (Neurontin) 200 mg PO TID [facility] Last Admin: 08/26/18 05:23 Dose: 200 mg Hydralazine HCl (Apresoline Iv) 10 mg IV Q4H PRN PRN PRN Reason: SBP > 160 Last Admin: 08/25/18 18:11 Dose: 10 mg Hydrochlorothiazide () 12.5 mg PO HS [facility] Last Admin: 08/25/18 21:22 Dose: 12.5 mg Hydromorphone HCl (Dilaudid Inj) 1 - 2 mg IV Q2H PRN PRN PRN Reason: PAIN Last Admin: 08/26/18 05:23 Dose: 1 mg Hydroxyzine HCl (Atarax Tablet) 10 mg PO TID PRN PRN PRN Reason: ITCHING Last Admin: 08/25/18 22:50 Dose: 10 mg Lactated Ringer's () 1,000 mls @ 60 mls/hr IV .[id number] [facility] Last Admin: 08/26/18 03:07 Dose: 60 mls/hr Losartan Potassium (Cozaar) 25 mg PO HS [facility] Last Admin: 08/25/18 21:22 Dose: 25 mg Melatonin (Melatonin) 6 mg PO QHS [facility] Last Admin: 08/25/18 21:22 Dose: 6 mg Multi-Ingredient Cream (Eucerin) 1 applic TOPICAL TID [facility] Last Admin: 08/26/18 05:27 Dose: 1 applicatio Non-Formulary Medication (Dextroamphetamine Sulfate [Dexedrine]) 15 mg PO TID [facility] Ondansetron HCl (Zofran) 4 mg IV Q8H PRN PRN PRN Reason: NAUSEA Oxycodone HCl (Oxyir) 5 - 10 mg PO Q4H PRN PRN PRN Reason: SEVERE PAIN (6-10/10) Last Admin: 08/26/18 03:21 Dose: 10 mg Polyethylene Glycol (Miralax) 17 gm PO DAILY [facility] Sodium Chloride () 5 - 15 ml IV UD PRN PRN Reason: SALINE FLUSH Last Admin: 08/26/18 05:23 Dose: 10 ml Tamsulosin HCl (Flomax) 0.4 mg PO DAILY [facility] Code Visit Inpatient E&M: 76797 Disch Hosp
--- NOTE | 2018-08-26 09:24 | PCM.PN.SRG ---
Subjective: Patient evaluated sitting in the chair. Patient notes abdominal pain. He denies nausea, vomiting. He has been using the bathroom well. - Physical Exam General: Alert, Cooperative Abdomen: Soft, Obese, Tender - generalized moderate amount of tenderness, - - Incision- c/d/i. No erythema or infection noted. Vital Signs Temp Pulse Resp BP Pulse Ox 98.3 F 73 18 169/109 H 96 08/26/18 09:10 08/26/18 09:10 08/26/18 09:10 08/26/18 09:10 08/26/18 09:10 Oxygen Flow Rate (L/min) 2 Oxygen Delivery Method Room Air Weight: 339 lb 1.135 oz Body Mass Index (BMI) 46.0 Intake and Output for Last 24 Hours 08/24/18 08/25/18 08/26/18 23:59 23:59 23:59 Intake Total 2150 / 2150 2274 / 2274 Output Total 300 / 300 Balance 1850 / 1850 2274 / 2274 Laboratory Tests Past 24 Hrs 08/25/18 08/26/18 08/26/18 09:55 05:40 05:40 WBC 6.7 9.4 RBC 5.08 4.89 Hgb 14.8 14.0 Hct 43.9 43.1 MCV 86.4 88.1 MCH 29.1 28.6 MCHC 33.7 32.5 RDW 14.7 H 14.9 H RDW Differential 45.3 H 47.2 H Plt Count 143 L 145 L MPV 10.9 10.7 Immature Gran % (Auto) 0.300 Neut % (Auto) 78.5 H Lymph % (Auto) 10.9 L [place] % (Auto) 9.9 Eos % (Auto) 0.3 Baso % (Auto) 0.1 Absolute Neuts (auto) 7.3 Absolute Lymphs (auto) 1.02 Total Counted Not Reportable Sodium 140 Potassium 3.5 Chloride 107 Carbon Dioxide 24.0 Anion Gap 9 BUN 13 Creatinine 0.75 Estim Creat Clear Calc 123.59 Est GFR (MDRD) Af Amer 138 Est GFR (MDRD) Non-Af 114 BUN/Creatinine Ratio 17.2 Glucose 149 H Calcium 7.7 L Medical Necessity - Tobacco Use Smoking Status: Never smoker Assessment/Plan All Active Problems (Last Reviewed 08/17/18 @ 10:31 by Rafat Cooper MD) Bite wound of forearm (Acute) Open arm wound (Acute) I am following this patient in conjunction with Dr. Cooper S/p ventral hernia repair x 2 Continue to need pain control We will continue to monitor this patient Code Visit Inpatient E&M: 55652 Subs Hosp L1 - NO CHARGE/POST-OP
[2018-08-26] MEDS: Finasteride 5 MG Tablet PO (09:33)
[2018-08-26] MEDS: Tamsulosin HCl 0.4 MG Capsule PO (09:33)
[2018-08-26] MEDS: Polyethylene Glycol 3350 17 GM PACKET PO (09:33)
[2018-08-26] MEDS: hydrALAZINE 20 MG/ML Vial 10 MG IV (10:47)
--- NOTE | 2018-08-26 11:56 | CASEMGMT ---
Addendum entered by Geri Womack 08/26/18 15:01: VIJAY faxed PT/OT to [facility] Original Note: Social Work Note VIJAY faxed referral to [facility]. PT/OT have been ordered for pt, but no notes available at this time. VIJAY placed a call to Sowmya at [facility] informed her of referral and that once PT/OT notes are available this worker will fax them over. Plan: [facility] Thursday Geri Womack OPERATIONS PLANNER, CHIEF OF VITAL STATISTICS
[2018-08-26] MEDS: Losartan Potassium 25 MG Tablet PO (21:12)
[2018-08-26] MEDS: MELATONIN 3 MG TABLET 6 MG PO (21:13)
[2018-08-26] MEDS: hydroCHLOROthiazide 12.5mg 12.5 MG PO (21:13)
[2018-08-27] VITALS (7 sets, daily range): BP systolic 135–174; BP diastolic 81–100; PULSE 86–101; RESP 16–20; TEMP 36.3–37.1; O2SAT 92–95
[2018-08-27] MEDS: oxyCODONE 5 MG Tablet PO ×3 (01:43→13:08)
[2018-08-27] MEDS: Gabapentin 100 MG Capsule 200 MG PO ×2 (05:04→13:08)
[2018-08-27] MEDS: busPIRone 5 MG Tablet PO ×2 (05:04→14:17)
--- NOTE | 2018-08-27 08:34 | PCM.PN.HOSP ---
Subjective: Patient seen participating in physical therapy Case was discussed with Dr. Cooper plan is for patient to be discharged to a nursing facility on 08/28/2018 Objective: GENERAL: In no distress HEENT: Atraumatic; moist oral mucosa EYES; Anicteric, Normal Conjunctiva NECK; supple, normal thyroid, . RESPIRATORY: Diminished to auscultation bilaterally, CARDIOVASCULAR: Regular S1 S2, GI: soft, non-tender, normoactive bowel sounds, : No Renal angle tenderness; EXTREMITIES: No edema, no clubbing, no cyanosis. NEURO: Awake; no lateralizing signs. SKIN: Excoriations on the dorsal surface of the left hand PSYCH; agitated Vitals/I&O's: Vital Signs Temp Pulse Resp BP Pulse Ox 98.7 F 91 18 149/95 H 92 08/27/18 01:57 08/27/18 01:57 08/27/18 01:57 08/27/18 01:57 08/27/18 06:54 Oxygen Flow Rate (L/min) 2 Oxygen Delivery Method Room Air Weight: 153.8 kg Body Mass Index (BMI) 46.0 Intake and Output for Last 24 Hours 08/25/18 08/26/18 08/27/18 23:59 23:59 23:59 Intake Total 2150 / 2150 2274 / 2274 1775 / 1775 Output Total 300 / 300 Balance 1850 / 1850 2274 / 2274 1775 / 1775 Current Medications Bisacodyl (Dulcolax) 10 mg PO HS PRN PRN Reason: CONSTIPATION Buspirone HCl (Buspar) 5 mg PO TID [facility] Last Admin: 08/27/18 05:04 Dose: 5 mg Finasteride (Proscar) 5 mg PO DAILY [facility] Last Admin: 08/26/18 09:33 Dose: 5 mg Gabapentin (Neurontin) 200 mg PO TID [facility] Last Admin: 08/27/18 05:04 Dose: 200 mg Hydralazine HCl (Apresoline Iv) 10 mg IV Q4H PRN PRN PRN Reason: SBP > 160 Last Admin: 08/26/18 10:47 Dose: 10 mg Hydrochlorothiazide () 12.5 mg PO HS [facility] Last Admin: 08/26/18 21:13 Dose: 12.5 mg Hydromorphone HCl (Dilaudid Inj) 1 - 2 mg IV Q2H PRN PRN PRN Reason: PAIN Last Admin: 08/26/18 05:23 Dose: 1 mg Hydroxyzine HCl (Atarax Tablet) 10 mg PO TID PRN PRN PRN Reason: ITCHING Last Admin: 08/25/18 22:50 Dose: 10 mg Lactated Ringer's () 1,000 mls @ 60 mls/hr IV .[id number] [facility] Last Admin: 08/26/18 22:55 Dose: 60 mls/hr Losartan Potassium (Cozaar) 25 mg PO HS [facility] Last Admin: 08/26/18 21:12 Dose: 25 mg Melatonin (Melatonin) 6 mg PO QHS [facility] Last Admin: 08/26/18 21:13 Dose: 6 mg Multi-Ingredient Cream (Eucerin) 1 applic TOPICAL TID [facility] Last Admin: 08/27/18 05:04 Dose: 1 applicatio Non-Formulary Medication (Dextroamphetamine Sulfate [Dexedrine]) 15 mg PO TID [facility] Ondansetron HCl (Zofran) 4 mg IV Q8H PRN PRN PRN Reason: NAUSEA Oxycodone HCl (Oxyir) 5 - 10 mg PO Q4H PRN PRN PRN Reason: SEVERE PAIN (6-10/10) Last Admin: 08/27/18 06:38 Dose: 10 mg Polyethylene Glycol (Miralax) 17 gm PO DAILY [facility] Last Admin: 08/26/18 09:33 Dose: 17 gm Sodium Chloride () 5 - 15 ml IV UD PRN PRN Reason: SALINE FLUSH Last Admin: 08/26/18 05:23 Dose: 10 ml Tamsulosin HCl (Flomax) 0.4 mg PO DAILY [facility] Last Admin: 08/26/18 09:33 Dose: 0.4 mg Medical Necessity - Tobacco Use Smoking Status: Never smoker Assessment/Plan All Active Problems (Last Reviewed 08/17/18 @ 10:31 by Rafat Cooper MD) Bite wound of forearm (Acute) Open arm wound (Acute) Patient is a 53-year-old male who underwent repair of ventral hernia with mesh by Dr. Cooper on 08/25/2018 the hospitalist service was consulted to assist with management of patient medical comorbidities 1. Status post repair of ventral hernia with mesh by Dr. Cooper on 08/25/2018. Patient postoperative orders regarding pain management as well as diet orders defer to general surgery 2. Hypertension-blood pressure control remains labile, home medications continued in addition to hydralazine as needed 3. MRDD (severity undetermined) with intermittent agitations patient is on buspirone supportive care 4. BPH patient is on flomax and dutasteride. 5. Obesity with BMI of 46 6. DVT prophylaxis: SCDs, per general surgery. Code Visit Inpatient E&M: 65586 Subs Hosp L2
[2018-08-27] MEDS: Tamsulosin HCl 0.4 MG Capsule PO (09:07)
[2018-08-27] MEDS: Polyethylene Glycol 3350 17 GM PACKET PO (09:07)
[2018-08-27] MEDS: Finasteride 5 MG Tablet PO (09:07)
--- NOTE | 2018-08-27 09:22 | PCM.TXEXTCAR ---
- Diet 08/26/18 09:04 Diet: Regular Diet Is pt able to select menu?: No - Routine Orders/Code Status Code Status: Full Code - Wound(s) ABD Wound Type: Surgical Incision left arm Wound Type: scattered abrasions FEET Wound Type: scattered abrasions right arm Wound Type: Abrasion - Therapies Physical Therapy: Eval and Treat Occupational Therapy: Eval and Treat - Allergies/Procedures Done in Hospital Allergies/Adverse Reactions: Allergies haloperidol Allergy (Verified 08/25/18 09:23) Unknown haloperidol lactate [From Haldol] Allergy (Verified 08/25/18 09:23) Unknown NOVOPARADOL Allergy (Uncoded 08/25/18 09:23) Unknown - Type of Care/Length of Stay Estimated LOS: Convalescent Care Less Than 30 days Type of Care Needed: Skilled Rehab Potential: Good Prognosis: Good - Additional Orders/Day of Discharge Day of Discharge: 08/28/18 - Dietary and Speech Recommendations Dietitian Recommendations/Changes: May benefit from diet change to cardiac/low cholesterol. - Follow Up Care Primary Care Physician: Gerald Wesley MD [Primary Care Provider] - Please Follow Up With: Rafat Cooper MD When: as scheduled
--- NOTE | 2018-08-27 09:54 | CASEMGMT ---
Social Work Note VIJAY spoke with Sowmya at [facility]. Sowmya confirms she is able to accept pt tomorrow. Plan: [facility] tomorrow. Geri Womack [employer]ING, PLANT PRODUCTION MANAGER
[2018-08-27] MEDS: Enoxaparin 40 MG/0.4 ML Syringe SC (10:59)
--- NOTE | 2018-08-27 11:50 | NURSING ---
called material mgmt to see if we had an abdominal binder greater than 62inches. We do not have a larger one so I will continue with the one currently on the patient
--- NOTE | 2018-08-27 12:26 | PCM.PN.SRG ---
Subjective: Patient has developed a slight rash inferiorly to his incision. Unsure if it is related to the surgery or from him scratching himself. No reported cases of bowel movements as of yet. Dressing is dry abdominal binder is in place Objective: Abdomen is soft pain has improved to deep palpation - Physical Exam Vital Signs Temp Pulse Resp BP Pulse Ox 98.7 F 98 20 H 135/95 H 95 08/27/18 08:00 08/27/18 08:00 08/27/18 08:00 08/27/18 08:00 08/27/18 08:00 Oxygen Flow Rate (L/min) 2 Oxygen Delivery Method Room Air Weight: 339 lb 1.135 oz Body Mass Index (BMI) 46.0 Intake and Output for Last 24 Hours 08/25/18 08/26/18 08/27/18 23:59 23:59 23:59 Intake Total 2150 / 2150 2274 / 2274 2528 / 2528 Output Total 300 / 300 Balance 1850 / 1850 2274 / 2274 2528 / 2528 Medical Necessity - Tobacco Use Smoking Status: Never smoker Assessment/Plan All Active Problems (Last Reviewed 08/17/18 @ 10:31 by Rafat Cooper MD) Bite wound of forearm (Acute) Open arm wound (Acute) Postoperative day #2 would anticipate he will be able to be discharged to the extra care facility on Thursday morning.
--- NOTE | 2018-08-27 13:29 | CASEMGMT ---
Social Work Note SW updated pt and pt's mother and father on acceptance to [facility] tomorrow. Green sheet on chart. Convalescent 7000 completed in HENS. Original placed in pt's SNF folder. Plan: [facility] tomorrow Geri Womack CAN PATCHER, SPINNING DOFFER
[2018-08-27] MEDS: Lactated Ringers 1,000 ML 60 ML IV (14:17)
[2018-08-27] MEDS: hydrALAZINE 20 MG/ML Vial 10 MG IV (15:09)
[2018-08-27] MEDS: Ondansetron 4 MG/2 ML Vial IV (16:01)
--- NOTE | 2018-08-27 17:15 | NURSING ---
pt with sudden nausea and dry heaves around 1600, zofran given. Pt reports noting foul smelling belches. Around 1700 pt woke up nauseated again dry heaving. Dr. Cooper notified of increased nausea, nurses aides report of noting foul smelling belches, hypoactive Bowel sounds, and unsurety if patient passing flatus. phenergan ordered and flat and upright ordered
[2018-08-27] MEDS: proMETHazine 25 MG/ML Syringe 12.5 MG IV (17:22)
--- NOTE | 2018-08-27 17:58 | RAD_ITS ---
STUDY: X-RAY - ABDOMEN/PELVIS REASON FOR EXAM: Male, 53 years old. Abdominal pain status post hernia repair. TECHNIQUE: Supine and left lateral decubitus images were obtained. COMPARISON: None. FINDINGS: Demonstrated lung bases are clear. There is no free air above the liver. There are multiple dilated loops of small bowel consistent with obstruction. No abnormal calcifications. Soft tissues and bony structures are unremarkable. RAD/Abd Inc Decub and/or Erect IMPRESSION: 1. Small bowel obstruction. 2. No evidence of pneumoperitoneum. Electronically Signed: Luz Stahl MD at 19:18 EST Tel , Service support ,
[2018-08-27] MEDS: HYDROmorphone 1 MG/ML Syringe IV (19:01)
[2018-08-28 01:53] VITALS: BP 148/108; PULSE 92; RESP 18; TEMP 37.1; O2SAT 95
--- NOTE | 2018-08-28 05:10 | PN.SURG_ITS ---
Subjective: Patient yesterday started to have some dry heaves but this is since stopped. He is now passing flatus. His pain is better controlled. Objective: His abdomen is soft obese rotund dressing is dry - Physical Exam Vital Signs Temp Pulse Resp BP Pulse Ox 98.8 F 92 18 148/108 H 95 08/28/18 01:53 08/28/18 01:53 08/28/18 01:53 08/28/18 01:53 08/28/18 01:53 Oxygen Flow Rate (L/min) 2 Oxygen Delivery Method Room Air Weight: 339 lb 1.135 oz Body Mass Index (BMI) 46.0 Intake and Output for Last 24 Hours 08/26/18 08/27/18 08/28/18 23:59 23:59 23:59 Intake Total 2274 / 2274 3000 / 3000 432 / 432 Balance 2274 / 2274 3000 / 3000 432 / 432 Medical Necessity - Tobacco Use Smoking Status: Never smoker Assessment/Plan All Active Problems (Last Reviewed 08/17/18 @ 10:31 by Rafat Cooper MD) Bite wound of forearm (Acute) Open arm wound (Acute) Postoperative day #3 We will see how he tolerates his liquids this morning. He has no further nausea or dry heaves we will discharge him to the intermediate later today
[2018-08-28] MEDS: Gabapentin 100 MG Capsule 200 MG PO (06:42)
[2018-08-28] MEDS: busPIRone 5 MG Tablet PO (06:42)
[2018-08-28 06:45] VITALS: O2SAT 94
[2018-08-28 08:00] VITALS: BP 151/94; PULSE 108; RESP 18; TEMP 37.6; O2SAT 95
[2018-08-28 08:10] VITALS: PULSE 100
--- NOTE | 2018-08-28 09:05 | DS.PCM_ITS ---
Discharge Date and Diagnosis Date of Admission: 02/26/12 Date of Discharge: 08/28/18 - Primary Discharge Diagnosis Ventral hernia repair - Secondary Discharge Diagnosis Chronic Problems (Last Reviewed 08/17/18 @ 10:31 by Rafat Cooper MD) Severe mental retardation (Chronic) Obsessive compulsive disorder (Chronic) Esophageal reflux (Chronic) history of cellulitis of leg (Chronic) History of appendicitis (Chronic) Morbid obesity (Chronic) History of MRSA infection (Chronic) Ventral hernia (Chronic) ADHD (Chronic) Autism (Chronic) Hyperactivity (behavior) (Chronic) Hypertension (Chronic) Hospital Course and Treatment Summary of Care Provided: Patient is a 53-year-old male who underwent repair of ventral hernia with mesh by Dr. Cooper on 08/25/2018 the hospitalist service was consulted to assist with management of patient medical comorbidities 1. Status post repair of ventral hernia with mesh by Dr. Cooper on 08/25/2018. Patient postoperative orders regarding pain management as well as diet orders defer to general surgery 2. Hypertension-blood pressure control remains labile, home medications continued in addition to hydralazine as needed 3. MRDD (severity undetermined) with intermittent agitations patient is on buspirone supportive care 4. BPH patient is on flomax and dutasteride. 5. Obesity with BMI of 46 6. DVT prophylaxis: SCDs, per general surgery. Objective: GENERAL: In no distress HEENT: Atraumatic; moist oral mucosa EYES; Anicteric, Normal Conjunctiva NECK; supple, normal thyroid, . RESPIRATORY: Diminished to auscultation bilaterally, CARDIOVASCULAR: Regular S1 S2, GI: soft, non-tender, normoactive bowel sounds, : No Renal angle tenderness; EXTREMITIES: No edema, no clubbing, no cyanosis. NEURO: Awake; no lateralizing signs. SKIN: Excoriations on the dorsal surface of the left hand - Physical Exam Vital Signs Temp Pulse Resp BP Pulse Ox 99.6 F H 108 H 18 151/94 H 95 08/28/18 08:00 08/28/18 08:00 08/28/18 08:00 08/28/18 08:00 08/28/18 08:00 Oxygen Flow Rate (L/min) 2 Oxygen Delivery Method Room Air Weight: 153.8 kg Body Mass Index (BMI) 46.0 Intake and Output for Last 24 Hours 08/26/18 08/27/18 08/28/18 23:59 23:59 23:59 Intake Total 2274 / 2274 3000 / 3000 834 / 834 Balance 2274 / 2274 3000 / 3000 834 / 834 Discharge Diet: No Restrictions Home Medications: Medications to take at Discharge Calcium Carb/Vitamin D [Caltrate-600 With Vit D Tab] 1 tab PO BIDCM 09/09/14 Tamsulosin HCl [Flomax] 0.4 mg PO DAILY 09/09/14 Dextroamphetamine Sulfate [Dexedrine] 15 mg PO TID 02/28/17 Dutasteride [Avodart] 0.5 mg PO QHS 02/28/17 gabapentin 100 mg capsule 200 mg PO TID cap 08/13/17 melatonin ER 3 mg tablet,extended release 6 mg PO QHS ea 08/13/17 multivitamin capsule 1 cap PO QDAY 08/13/17 bisacodyl 5 mg tablet 10 mg PO QHS PRN tab 08/05/18 buspirone 5 mg tablet 5 mg PO TID 08/05/18 hydroxyzine HCl 10 mg tablet 10 mg PO TID-QID PRN 08/05/18 Cetirizine HCl [Zyrtec] 10 mg PO DAILY 08/18/18 Chlorhexidine Gluconate [Hibiclens] 118 ml TP UD 08/18/18 Lanolin Alcohol/Mo/W.pet/[place] [Eucerin Creme] 113 gm TP TID 08/18/18 Polyethylene Glycol 3350 [Miralax] 17 gm PO DAILY 08/18/18 Losartan Potassium [Cozaar] 25 mg PO HS tablet 08/27/18 hydroCHLOROthiazide [Hydrochlorothiazide] 12.5 mg PO HS capsule 08/27/18 Primary Care Physician: Gerald Wesley MD [Primary Care Provider] - Please Follow Up With: Rafat Cooper MD When: as scheduled Disposition: Correction facility Minutes spent on discharge:: 35 Patient Condition:: Stable Medical Necessity - Tobacco Use Smoking Status: Never smoker Meaningful Use Info Meaningful Use Diagnoses (Choose all that apply): None applicable Code Visit Inpatient E&M: 73577 Disch Hosp
[2018-08-28] MEDS: Polyethylene Glycol 3350 17 GM PACKET PO (10:04)
[2018-08-28] MEDS: Tamsulosin HCl 0.4 MG Capsule PO (10:04)
[2018-08-28] MEDS: Enoxaparin 40 MG/0.4 ML Syringe SC (10:04)
[2018-08-28] MEDS: Finasteride 5 MG Tablet PO (10:04)
[2018-08-28] MEDS: oxyCODONE 5 MG Tablet PO (10:55)
[2018-08-28 11:35] VITALS: BP 151/94; PULSE 113; RESP 18; TEMP 37.3; O2SAT 92
== END 2018-08-28 12:50 | disposition skilled nursing facility (03) | DRG 354 ==
LOC: SDC 15:47 → MS3 15:48
PROVIDERS: Anesthesiology; Family Medicine; Admitting Provider Surgery; Family Provider Family Medicine; PCP Family Medicine; Referring Provider Surgery; Visit Provider Internal Medicine
PROC: 0WUF0JZ Supplement Abdominal Wall with Synthetic Substitute, Open Approach (ICD-10-PCS; principal; 2018-08-25 10:45)
DX: K43.9 Ventral hernia without obstruction or gangrene (principal); Z68.42 Body mass index [BMI] 45.0-49.9, adult; F72 Severe intellectual disabilities; F84.0 Autistic disorder; G47.33 Obstructive sleep apnea (adult) (pediatric); I10 Essential (primary) hypertension; N40.0 Benign prostatic hyperplasia without lower urinary tract symptoms; F42.8 Other obsessive-compulsive disorder; K21.9 Gastro-esophageal reflux disease without esophagitis; E66.01 Morbid (severe) obesity due to excess calories; Z86.14 Personal history of Methicillin resistant Staphylococcus aureus infection; F90.9 Attention-deficit hyperactivity disorder, unspecified type; Z79.899 Other long term (current) drug therapy
CPT/HCPCS: 36415; 74019; 80048; 85025; 85027; 93005; 97161; 97165; 97530; J7120; A4216; C1781; J2405; J3490

== ENCOUNTER 2018-10-28 01:04 | Emergency (ER) | payer MEDICARE, MEDICAID, SELFPAY ==
[2018-08-25 09:26] VITALS: BMI 46.0
[2018-10-28 01:06] VITALS: BP 148/92; PULSE 85; RESP 19; TEMP 37; O2SAT 96; BMI 43.4
--- NOTE | 2018-10-28 01:18 | CT_ITS ---
HISTORY: ABDOMEN PAIN,NAUSEA AND VOMITINGHX:HLD,HTN,KIDNEY STONES,APPENDECTOMY and history of hernia repair EXAMINATION: CT Abdomen And Pelvis W/O Contrast TECHNIQUE: Helically acquired images were obtained of the abdomen and pelvis without oral or IV contrast as per renal stone protocol. A radiation dose optimization technique was used for this scan. IV Contrast dosage and agent: None. Oral contrast: None. COMPARISON: Abdomen series 08/27/[address] abdomen and pelvis 05/14/2017 FINDINGS: Large body habitus with protuberant abdomen. Lower thorax: Mild dependent atelectasis, not unusual. No pericardial effusion or pleural effusion. Limited non-infusion exam. Contracted gallbladder with at least one small gallstone. No biliary dilatation. Normal liver, spleen, and pancreas. No pancreatic ductal dilatation. Both kidneys are normal in position. 5 x 2 mm stone within the lower sacral left ureter. Mild hydronephrosis and hydroureter proximal to the stone. Left renal edema and perinephric edema with surrounding fat stranding. No intrarenal calculi. No hydronephrosis or hydroureter on the right. Adrenal glands are not enlarged. Abdominal aorta is normal in caliber. No retroperitoneal lymph enlargement. GI tract: No obstruction. Borderline dilatation of the right colon which measures up to 7.8 cm in diameter and similar borderline dilatation of the proximal transverse colon which measures up to 8.1 cm in diameter. Large fecal residue within the right and transverse colon. The left colon and rectosigmoid colon is decompressed. Distal colonic diverticulosis without diverticulitis. Nonvisualization of the appendix which correlates with the surgical history Pelvis: As above, 5 x 2 mm stone within the lower sacral left ureter. The urinary bladder is not over distended. Prostate gland is not enlarged. No free fluid or lymph node enlargement. Ventral abdominal Wall: Previously seen supraumbilical fat-containing hernia. Postsurgical change with probable eventual graft. Soft tissue opacity and soft tissue stranding within the supraumbilical subcutaneous fat which may reflect scarring, although note that the cellulitis is not excluded. No soft tissue gas at this site to suggest abscess. CT/Abdomen/Pelvis without Cont IMPRESSION: 1. 5 x 2 mm stone within the lower sacral left ureter with mild hydronephrosis and hydroureter proximal to the stone together with left renal and perirenal edema. 2. Cholelithiasis. No biliary dilatation. 3. Large stool content within the right and transverse colon without bowel obstruction. The left colon and rectosigmoid colon is decompressed. Distal diverticulosis coli. 4. Supraumbilical hernia repair with residual subcutaneous scarring or possibly cellulitis. No abscess seen. Please correlate clinically. Individualized dose optimization techniques were used for this CT. at 0248 Reported and signed by: Gurpreet Massey MD Electronically Signed: Gurpreet Massey, at 2:47 EDT Tel , Service support ,
[2018-10-28] MEDS: Ondansetron 4 MG/2 ML Vial IV (01:30)
[2018-10-28] MEDS: 0.9% Normal Saline 1,000 ML 150 ML IV (01:30)
[2018-10-28] MEDS: Morphine 4 MG/ML Syringe IV ×2 (01:30→03:21)
[2018-10-28 01:39] LABS: Absolute Lymphocyte Count 1.13 X10^3/ul (0.83-4.51); Absolute Neutrophil Count 5.8 X10^3/uL (2.0-7.7); Basophil# 0.01 X10^3/uL; Basophil% 0.1 % (0-1); Eosinophil# 0.09 X10^3/uL; Eosinophils% 1.2 % (0-5); Hemoglobin 14.8 g/dl (13.0-16.5); Lymphocyte # 1.13 X10^3/ul (4.0); Lymphocyte % 14.8 % (19-41); Mean Corp Hgb Conc 33.6 g/gl (32-36); Mean Corpuscular Hgb 28.4 pg (27.0-32.0); Mean Corpuscular Volume 84.5 fL (80-94); Monocyte# 0.57 X10^3/uL; Monocyte% 7.4 % (0-10); Neutrophil # 5.84 X10^3/uL (2.7-7.7); Neutrophil % 76.2 % (47-70); Platelet Count 147 K/mm3 (150-450); RBC Distribution Width CV 14.7 % (11.6-14.6); RBC Distribution Width SD 45.3 fl (35.1-43.9); Red Blood Count 5.21 M/mm3 (4.6-6.2); White Blood Count 7.7 K/mm3 (4.4-11.0)
[2018-10-28 01:43] LABS: POSITIVE COUNT NO; POSITIVE DIFFERENTIAL NO; POSITIVE MORPHOLOGY NO
[2018-10-28 02:12] LABS: AST(SGOT) 26 U/L (15-37); Alanine Aminotransfer ALT/SGPT 25 U/L (16-61); Albumin, Serum 3.5 g/dL (3.2-5.0); Alkaline Phosphatase 116 U/L (45-117); Anion Gap 6 (5-15); BUN 20 mg/dL (7-18); BUN/Creat Ratio 20.3 RATIO (10-20); Bilirubin, Direct 0.06 mg/dL (0.00-0.30); Chloride 107 mmol/L (98-107); Creatinine, Serum 0.98 mg/dL (0.70-1.30); EST Glomerular Filtration Rate 84 mL/min (>60); Est Glom Filt Rate - Afr Amer 102 mL/min (>60); Estimated Creatinine Clearance 102.99 ml/min; Globulin 3.7 g/dL (2.2-4.2); Glucose 153 mg/dL (74-106); Lipase 82 U/L (73-393); Potassium 4.1 mmol/L (3.5-5.1); Protein, Total 7.2 g/dL (6.4-8.2); Sodium Level 141 mmol/L (136-145)
--- NOTE | 2018-10-28 02:19 | ED.DCSUM_ITS ---
- ER Visit Summary Date of Service: 10/28/18 Chief Complaint: Abdominal pain, nausea and vomiting History of Present Illness: The patient is a 53 M who reportedly started complaining of abdominal pain late last evening. He points to the site of his prior hernia surgery from June. He does have nausea and vomiting tonight. assisted staff member tried to give him Tylenol but he vomited back up. He has had bowel movements in the last 24 hours. Past history significant for MRDD, cellulitis, obesity, ADHD, autism, anxiety, OCD, hypertension, high cholesterol. Physical Examination: Vital signs unremarkable. Patient lying in bed with his hands raised by his head. He is in no acute distress but does intermittently cry out. Head neck examination grossly unremarkable. Heart is regular rate and rhythm. Lung sounds are clear. Abdomen is soft with mid upper abdominal tenderness. No guarding or rebound. Hypoactive but present bowel sounds are noted throughout. Test Results: CBC significant only for platelet count of 147,000. Chemistry studies unremarkable. LFTs and lipase normal. CT flank with a 5 x 2 mm stone in the left lower sacral ureter. A large amount of stool is noted in the right and transverse colon. The supraumbilical hernia repair site has scar tissue. Emergency Department Course and Treatment: Patient was given morphine, Zofran, and IV fluids. Upon return of the CT scan he was given a dose of Toradol followed by a second dose of morphine. This time patient is resting comfortably. Test results are discussed with the patient's parents as well as the staff member from the [facility]. He will be given prescriptions for [place], Toradol, and Zofran. He is already on Flomax. He will follow-up with Dr. Gunter whom he has seen in the past. Treatment Plan: [] Disposition: Discharge Impression: Left ureterolithiasis This note was generated with Super[employer] dictation software. It may contain incorrect words, spelling, and punctuation that were not noted in review of the chart prior to signing ED Disposition - Plan for ED Patient: Disposition: Home or Assisted Living Instructions: ED Stone Renal W Colic Prescriptions: Hydrocodone Bitart/Apap 5-325 [[place] 5MG-325MG] 1 tablet PO Q6H PRN PRN 3 Days #10 tablet PRN Reason: Pain Ondansetron [Zofran Odt] 4 mg PO Q8H PRN PRN #10 tablet PRN Reason: Nausea Ketorolac [Toradol] 10 mg PO Q6H #14 tablet Referrals: Matthias Gunter MD [STAFF PHYSICIAN] - 3-5 Days if not improving
[2018-10-28] MEDS: Ketorolac 30 MG/ML Syringe IV (03:07)
[2018-10-28 03:25] VITALS: RESP 17
[2018-10-28 04:30] VITALS: BP 147/102; PULSE 72; RESP 18; O2SAT 95
[2018-10-28] MEDS: Ondansetron ODT 4 MG Tablet PO (04:31)
[2018-10-28] MEDS: HYDROcodone Bitartrate/Apap 5/325 Tablet PO (04:31)
== END 2018-10-28 04:38 | disposition home or self-care (01) ==
PROVIDERS: Emergency Provider Emergency Medicine; Family Provider Family Medicine; PCP Family Medicine
DX: N20.1 Calculus of ureter (principal); E66.9 Obesity, unspecified; I10 Essential (primary) hypertension; F90.9 Attention-deficit hyperactivity disorder, unspecified type; F84.0 Autistic disorder; F41.9 Anxiety disorder, unspecified; F42.8 Other obsessive-compulsive disorder; E78.00 Pure hypercholesterolemia, unspecified; Z79.899 Other long term (current) drug therapy
CPT/HCPCS: 74176; 80048; 80076; 83690; 85025; 96361; 96374; 96375; 96376; 99283; J7030; A4216; J2405

== ENCOUNTER 2018-11-24 06:42 | Day surgery (SDC) | payer MEDICARE, MEDICAID, SELFPAY ==
[2018-11-24 07:18] VITALS: BP 144/83; PULSE 85; RESP 16; TEMP 36.6; O2SAT 97; BMI 47.1
[2018-11-24] MEDS: Cefazolin 2 GM in 0.9% Normal Saline 100 ML IV (09:09)
--- NOTE | 2018-11-24 09:13 | PCM.DC.URO ---
Discharge Diet: Light diet - advance as tolerated Discharge Activity: Return to Normal Activity May shower in (days): 1 Lifting Restrictions: No lifting. Call your doctor if your incision/area has: Continuous Slow Oozing, Sudden Increased Bleeding, Increased Pain/ Swelling, Increased Redness, Foul Smelling Discharge, Swelling at the incision site Call your doctor if you observe: Fever of 101 or Higher Suture Line Care: Avoid Pulling/Pushing, Avoid Pinching/Bending Allergies/Adverse Reactions: Allergies haloperidol Allergy (Verified 11/24/18 07:14) Unknown haloperidol lactate [From Haldol] Allergy (Verified 11/24/18 07:14) Unknown cabbage Adverse Reaction (Verified 11/24/18 07:14) Unknown NOVOPARADOL Allergy (Uncoded 11/24/18 07:14) Unknown BEANS Adverse Reaction (Uncoded 11/24/18 07:14) Unknown SAUERKRAUT Adverse Reaction (Uncoded 11/24/18 07:14) Unknown Medications to take at Discharge Bisacodyl 5 - 10 mg PO PRN PRN 10/28/18 Buspirone HCl 5 mg PO TID 10/28/18 Calcium Carbonate/Vitamin D3 [Calcium 600-Vit D3 400 Tablet] 1 each PO DAILY 10/28/18 Cetirizine HCl [All Day Allergy] 10 mg PO QHS 10/28/18 Dextroamphetamine/Amphetamine [Dextroamp-Amphet ER 15 mg Cap] 15 mg PO TID 10/28/18 Dutasteride 0.5 mg PO DAILY 10/28/18 Gabapentin [Neurontin] 200 mg PO TID 10/28/18 Hydroxyzine HCl 10 mg PO Q8H PRN PRN 10/28/18 Ketorolac [Toradol] 10 mg PO Q6H #14 tablet 10/28/18 Lanolin Alcohol/Mo/W.pet/[place] [Eucerin Creme] 454 gm TP BID 10/28/18 Losartan/Hydrochlorothiazide [Losartan-Hctz 50-12.5 mg Tab] 1 each PO DAILY 10/28/18 Melatonin 6 mg PO DAILY 10/28/18 Multivitamin/Iron/Folic Acid [Certavite-Antioxidant Tablet] 1 each PO DAILY 10/28/18 Ondansetron [Zofran Odt] 4 mg PO Q8H PRN PRN #10 tablet 10/28/18 Polyethylene Glycol 3350 [Gavilax] 238 gm PO QODAY 10/28/18 Tamsulosin HCl 0.4 mg PO DAILY 10/28/18 Acetaminophen [Tylenol Extra Strength] 500 mg PO Q4H PRN PRN #20 tab 11/24/18 Ciprofloxacin [Cipro] 500 mg PO BID #14 tab 11/24/18 Ibuprofen 600 mg PO Q6H PRN PRN #20 tab 11/24/18 Primary Care Physician: Gerald Wesley MD [Primary Care Provider] - Test Results: Test results from this visit will be discussed in further detail at your follow-up appointment, if applicable. Please Follow Up With: Matthias Gunter MD When: in 2 weeks, please call to make an appointment.
--- NOTE | 2018-11-24 09:16 | DCINST_ITS ---
Discharge Diet: Light diet - advance as tolerated Discharge Activity: Return to Normal Activity May shower in (days): 1 Lifting Restrictions: No lifting. Call your doctor if your incision/area has: Continuous Slow Oozing, Sudden Increased Bleeding, Increased Pain/ Swelling, Increased Redness, Foul Smelling Discharge, Swelling at the incision site Call your doctor if you observe: Fever of 101 or Higher Suture Line Care: Avoid Pulling/Pushing, Avoid Pinching/Bending Allergies/Adverse Reactions: Allergies haloperidol Allergy (Verified 11/24/18 07:14) Unknown haloperidol lactate [From Haldol] Allergy (Verified 11/24/18 07:14) Unknown cabbage Adverse Reaction (Verified 11/24/18 07:14) Unknown NOVOPARADOL Allergy (Uncoded 11/24/18 07:14) Unknown BEANS Adverse Reaction (Uncoded 11/24/18 07:14) Unknown SAUERKRAUT Adverse Reaction (Uncoded 11/24/18 07:14) Unknown Medications to take at Discharge Bisacodyl 5 - 10 mg PO PRN PRN 10/28/18 Buspirone HCl 5 mg PO TID 10/28/18 Calcium Carbonate/Vitamin D3 [Calcium 600-Vit D3 400 Tablet] 1 each PO DAILY 10/28/18 Cetirizine HCl [All Day Allergy] 10 mg PO QHS 10/28/18 Dextroamphetamine/Amphetamine [Dextroamp-Amphet ER 15 mg Cap] 15 mg PO TID 10/28/18 Dutasteride 0.5 mg PO DAILY 10/28/18 Gabapentin [Neurontin] 200 mg PO TID 10/28/18 Hydroxyzine HCl 10 mg PO Q8H PRN PRN 10/28/18 Ketorolac [Toradol] 10 mg PO Q6H #14 tablet 10/28/18 Lanolin Alcohol/Mo/W.pet/[place] [Eucerin Creme] 454 gm TP BID 10/28/18 Losartan/Hydrochlorothiazide [Losartan-Hctz 50-12.5 mg Tab] 1 each PO DAILY 10/28/18 Melatonin 6 mg PO DAILY 10/28/18 Multivitamin/Iron/Folic Acid [Certavite-Antioxidant Tablet] 1 each PO DAILY 10/28/18 Ondansetron [Zofran Odt] 4 mg PO Q8H PRN PRN #10 tablet 10/28/18 Polyethylene Glycol 3350 [Gavilax] 238 gm PO QODAY 10/28/18 Tamsulosin HCl 0.4 mg PO DAILY 10/28/18 Acetaminophen [Tylenol Extra Strength] 500 mg PO Q4H PRN PRN #20 tab 11/24/18 Ciprofloxacin [Cipro] 500 mg PO BID #14 tab 11/24/18 Ibuprofen 600 mg PO Q6H PRN PRN #20 tab 11/24/18 Primary Care Physician: Gerald Wesley MD [Primary Care Provider] - Test Results: Test results from this visit will be discussed in further detail at your follow- up appointment, if applicable. Please Follow Up With: Matthias Gunter MD When: in 2 weeks, please call to make an appointment.
--- NOTE | 2018-11-24 09:43 | PCM.OPRPT ---
Report of Operation Date of Procedure: 11/24/18 Pre-Operative Diagnosis: Left ureteral calculi Post-Operative Diagnosis: Same Surgery/Procedure Performed:: Cystoscopy, balloon dilation of the left ureter, left ureteroscopy laser lithotripsy of stone, left retrograde pyelogram, interpretation of fluoroscopic images. Description of Surgical Findings:: 53-year-old male who has an obstructing stone in the distal left ureter is failed to pass the stone conservatively today we plan to taken the surgery to laser the stone and remove the stone from the ureter that is causing obstruction. Patient was taken back to the operating room after smooth induction of anesthesia he was placed in dorsolithotomy position the penis and testicles were prepped and draped in the usual sterile fashion. I went into the bladder with a 21 [place] rigid cystourethroscope identified the verumontanum entire length of the urethra is normal the membranous urethra is normal bulbar urethra normal pendulous urethra was normal. The sphincter was intact the verumontanum was identified he did have a large median lobe inside the bladder and he had a trabeculated bladder I then identified the right and left ureteral orifice I think cannulated the left ureteral orifice with a Glidewire and a balloon dilator and I balloon dilated the distal left ureter making sure not to go beyond the stone this was done under fluoroscopic guidance after balloon dilating the left ureter left the wire in place and over the wire went in with an 8 [place] flexible ureteroscope was able to get into the ureter quite easily. I then used a 270 ?m laser laser fiber and laser the stone in the distal ureter and the little tiny pieces this was done in the very efficient fashion. I then performed a retrograde pyelogram interpreted the images there was no obstruction no extravasation contrast the urine was draining well sided side not to leave a stent I pulled out of the ureter with the ureteroscope with stone fragments were passing. I then drained the bladder with a 21 [place] scope patient's anesthetic is being reversed plan to see him back in a few weeks for checkup no stent placed. Type of Anesthesia:: General Drains: none - Admit VTE Documentation VTE Present on Admission: No VTE Mechan Device Prophylaxis: SCD's VTE Pharm Prophylaxis ordered?: No Reason prophylaxis not ordered:: Treatment Not Indicated
[2018-11-24 10:00] VITALS: BP 144/83; BP 158/104; PULSE 79; RESP 16; TEMP 36.7; O2SAT 95
[2018-11-24 10:15] VITALS: BP 136/107; BP 144/83; PULSE 74; RESP 20; O2SAT 93
[2018-11-24] MEDS: Ketorolac 15 MG/ML Vial IV (10:17)
[2018-11-24 10:26] VITALS: BP 130/89; BP 144/83; PULSE 77; RESP 20; TEMP 36.5; O2SAT 94
[2018-11-24 11:41] VITALS: BP 132/87; BP 144/83; PULSE 77; RESP 18; TEMP 36.4; O2SAT 96
== END 2018-11-24 11:54 | disposition home or self-care (01) ==
LOC: SDC 06:43 → AC 06:43
PROVIDERS: Family Provider Family Medicine; PCP Family Medicine; Referring Provider Urology; Visit Provider Urology
PROC: 0TJ98ZZ Inspection of Ureter, Via Natural or Artificial Opening Endoscopic (ICD-10-PCS; CPT 52352; principal; 2018-11-24 08:50)
DX: N13.2 Hydronephrosis with renal and ureteral calculous obstruction (principal); N40.0 Benign prostatic hyperplasia without lower urinary tract symptoms; F41.9 Anxiety disorder, unspecified; F90.9 Attention-deficit hyperactivity disorder, unspecified type; F84.0 Autistic disorder; Q87.1 Congenital malformation syndromes predominantly associated with short stature; I10 Essential (primary) hypertension; E78.00 Pure hypercholesterolemia, unspecified; G47.30 Sleep apnea, unspecified; Z87.440 Personal history of urinary (tract) infections; Z79.899 Other long term (current) drug therapy
CPT/HCPCS: 52353; 76000; J7120; J2405

== ENCOUNTER → 2019-11-24 | Outpatient (CLI) | payer MEDICARE, MEDICAID, SELFPAY ==
[2019-11-24 18:46] LABS: Vitamin D,25 Hydroxy 49.2 ng/mL
== END | disposition home or self-care (01) ==
PROVIDERS: PCP Family Medicine; Referring Provider Physician Assistant; Visit Provider Physician Assistant
DX: E55.9 Vitamin D deficiency, unspecified (principal)
CPT/HCPCS: 82306

== ENCOUNTER 2023-08-19 14:45 | Emergency (ER) | payer MEDICARE, MEDICAID, SELFPAY ==
[2023-08-19 14:46] VITALS: BP 118/68; PULSE 86; RESP 22; TEMP 35.6; O2SAT 97; BMI 40.3
--- NOTE | 2023-08-19 15:15 | CT_ITS ---
EXAMINATION : Head CT w/out contrast HISTORY : altered mental status COMPARISON : None. TECHNIQUE : Multiple contiguous axial images were obtained from the skull base to the vertex without intravenous contrast. A radiation dose optimization technique was used for this scan. FINDINGS : The ventricles and sulci are normal in size. There is no evidence for acute intracranial hemorrhage, mass effect, or midline shift. There is no extra-axial fluid collection. There is normal grider-white differentiation, without CT evidence of acute ischemia or infarct. The skull base and calvarium are unremarkable. The orbits are unremarkable. The paranasal sinuses are clear. The mastoid air cells are well-aerated. The soft tissues are unremarkable. CT/Brain/Head without Contrast IMPRESSION: No acute intracranial abnormality. Electronically Signed: Brennen Graham MD at 17:16 EST ,
--- NOTE | 2023-08-19 15:15 | EKG12_ITS ---
Test Reason : Blood Pressure : / mmHG Vent. Rate : 082 BPM Atrial Rate : 082 BPM P-R Int : 176 ms QRS Dur : 128 ms QT Int : 428 ms P-R-T Axes : 034 -37 028 degrees QTc Int : 500 ms Sinus rhythm with frequent Premature ventricular complexes Left axis deviation Non-specific intra-ventricular conduction block Possible Lateral infarct , age undetermined Abnormal ECG Confirmed by KAL ALFORD, URIEL ([id number]), digital editor RAS PEREZ ([id number]) on 08/21/2023 10:50:24 AM Referred By: Confirmed By:URIEL BOWDEN MD
[2023-08-19] MEDS: Naloxone 2 MG/2 ML Syringe NASAL (15:20)
--- NOTE | 2023-08-19 15:21 | EX.ED.DYSGE1 ---
HPI History of Present Illness Chief Complaint: Alt LOC Narrative Narrative: 58-year-old male presenting with altered mental status. He has a history of mental retardation, autism, ADHD. Patient was with his day program today and the recreation facility manager states that he was high laughing and having a good time and dancing and all of a sudden started to cry and facility workers were unconcerned why. Patient went and sat down. They think he lost his color in his face and thought he was pale. Patient's not able to give a significant history due to his mental capacity. He did not tell them any complaints. Patient with history of hypertension, diabetes, hyperlipidemia. [facility] Medical History ADHD Autism Bite wound of forearm Esophageal reflux History of appendicitis history of cellulitis of leg History of MRSA infection Hyperactivity (behavior) Hyperlipidemia Hypertension Morbid obesity Obsessive compulsive disorder Open arm wound Severe mental retardation Ventral hernia Home Medications Polyethylene Glycol 3350 [Gavilax] 238 g PO QODAY 10/28/18 [History Last Taken Unknown] bisacodyl 5 mg tablet,delayed release (Fleet Laxative (bisacodyl)) 5 - 10 mg PO PRN PRN Constipation 10/28/18 [History Last Taken Unknown] buspirone 10 mg tablet 10 mg PO TID 10/28/18 [History Last Taken 11/24/18] calcium carbonate 600 mg-vitamin D3 10 mcg (400 unit) tablet 1 ea PO DAILY 10/28/18 [History Last Taken Unknown] cetirizine 10 mg capsule (All Day Allergy (cetirizine)) 10 mg PO QHS 10/28/18 [History Last Taken Unknown] dextroamphetamine-amphetamine ER 15 mg 24hr capsule,extend release 15 mg PO TID 10/28/18 [History Last Taken 11/24/18] dutasteride 0.5 mg capsule 0.5 mg PO DAILY 10/28/18 [History Last Taken Unknown] gabapentin 100 mg capsule (Neurontin) 200 mg PO TID 10/28/18 [History Last Taken 11/24/18] hydroxyzine HCl 10 mg tablet 10 mg PO DAILY Itching 10/28/18 [History Last Taken Unknown] ketorolac 10 mg tablet 10 mg PO Q6H ##14 10/28/18 [Rx Last Taken Unknown] lanolin alcohols-mineral oil-w.petrolatum-ceresin topical cream (Eucerin topical cream) 454 g TP BID 10/28/18 [History Last Taken Unknown] losartan 50 mg-hydrochlorothiazide 12.5 mg tablet 1 ea PO DAILY 10/28/18 [History Last Taken Unknown] melatonin 3 mg tablet 6 mg PO DAILY 10/28/18 [History Last Taken Unknown] tamsulosin 0.4 mg capsule 0.4 mg PO DAILY 10/28/18 [History Last Taken Unknown] acetaminophen 500 mg tablet 500 mg PO Q4H PRN PRN Pain #20 tabs 11/24/18 [Rx Last Taken Unknown] ibuprofen 600 mg tablet 600 mg PO Q6H PRN PRN Pain #20 tabs 11/24/18 [Rx Last Taken Unknown] metformin 1,000 mg tablet 1,000 mg PO BID 08/19/23 [History Last Taken Unknown] Allergy/AdvReac Type Severity Reaction Status Date / Time haloperidol Allergy Unknown Verified 08/19/23 15:27 haloperidol lactate Allergy Unknown Verified 08/19/23 15:27 [From Haldol] silvestre AdvReac NEEDS Verified 08/19/23 15:27 FOLLOW-UP cabbage AdvReac Unknown Verified 08/19/23 15:27 Food Allergies: Uncoded AdvReac NEEDS Verified 08/19/23 15:27 FOLLOW-UP Surgical History history finger surgery History of appendectomy History of dental surgery history tracheotomy Social History Smoking Status: Never smoker alcohol intake: never substance use type: does not use ROS ROS ED Review of Systems ROS Unobtainable: due to mental condition and due to mental status EXAM Physical Exam Const Vital Signs: 08/19/23 14:46 08/19/23 19:52 Temperature 96.1 F L Temperature Source Axillary Pulse Rate 86 78 Respiratory Rate 22 H 18 Blood Pressure 118/68 134/87 H Blood Pressure Mean 84 102 Pulse Ox 97 96 Oxygen Delivery Method Room Air Positive well nourished General Appearance ED: NAD; Negative for pallor HEENT Reports moist mucous membranes Eyes Eyes Narrative: Pupils pinpoint. Neck no lymphadenopathy Chest Wall inspection of chest normal Resp normal respiratory effort and clear to auscultation bilaterally Auscultation: Negative for rales, rhonchi or wheezes Cardio regular rate and regular rhythm GI normal to inspection, nondistended, normoactive bowel sounds GI Narrative: Abdomen not apparently tender. Back/Spine no CVA tenderness Neuro Sensorium / Orientation: orientation impaired and stuporous Psych Psych Narrative: Confused Skin no rashes or lesions noted and no wounds General Skin Exam: Negative for jaundice or pallor MDM MDM MDM Narrative Medical decision making narrative: Patient presented with altered mental status. He is not very responsive his pupils are pinpoint but he does open his eyes and talk somewhat. Differential includes stroke,, intracranial hemorrhage, ACS, dehydration, anemia, electro normalities, behavioral, COVID, flu, influenza, UTI, hyperammonemia, syncope. Patient initially given some Narcan just to make sure he was not in opioid overdose does not affect him. He was taken to CT and a CT brain was negative. Chest x-ray my interpretation is no acute process. Radiology interprets this and agrees. EKG on my interpretation shows a normal sinus rhythm with a ventricular rate of 82 bpm without sign of ischemic change. COVID, flu, influenza all within normal limits. CBC, CMP, ammonia all within normal limits. High-sensitivity troponin is 5. Urinalysis was negative for infection. Urine drug screen positive for amphetamines however the patient takes amphetamines as a prescription. Patient is now alert and awake and talking. He was able to void at the bedside commode. At this point I feel the patient can go home as we did not find anything acutely wrong with him. Return precautions were discussed. Impression: 1. Altered mental status 2. Urinary retention Lab Data Attestation: I reviewed the patient's lab results. Labs: Laboratory Results - last 24 hr 08/19/23 08/19/23 15:24 16:00 WBC 5.0 RBC 5.10 Hgb 14.5 Hct 43.4 MCV 85.1 MCH 28.4 MCHC 33.4 RDW Std Deviation 43.1 RDW Coeff of Stephanie 13.9 Plt Count 123 L MPV 10.7 Immature Gran % (Auto) 0.400 Neut % (Auto) 60.7 Lymph % (Auto) 28.3 [place] % (Auto) 8.2 Eos % (Auto) 2.0 Baso % (Auto) 0.4 Absolute Neuts (auto) 3.0 Absolute Lymphs (auto) 1.41 Nucleated RBC % 0 Sodium 139 Potassium 3.6 Chloride 106 Carbon Dioxide 30.0 Anion Gap 3 L BUN 21 H Creatinine 0.75 Estim Creat Clear Calc 150.72 Est GFR (MDRD) Af Amer 138 Est GFR (MDRD) Non-Af 114 BUN/Creatinine Ratio 28.2 H Glucose 131 H Calcium 8.5 Total Bilirubin 0.40 AST 6 L ALT 18 Alkaline Phosphatase 91 Ammonia 32.0 Troponin I High Sens 5 Total Protein 6.3 L Albumin 3.3 Globulin 3.0 Albumin/Globulin Ratio 1.1 Urine Color Yellow Urine Clarity Clear Urine pH 6.5 Ur Specific [place] 1.015 Urine Protein Negative Urine Glucose (UA) Normal Urine Ketones Negative Urine Occult Blood Negative Urine Nitrite Negative Urine Bilirubin Negative Urine Urobilinogen Normal Ur Leukocyte Esterase Negative Urine RBC 0 SEEN Urine WBC 0 SEEN Ur Squamous Epith Cells 0 SEEN Urine Bacteria 0 SEEN Urine Mucus 0 SEEN Urine Opiates Screen NEGATIVE Urine Methadone Screen NEGATIVE Ur Barbiturates Screen NEGATIVE Ur Phencyclidine Scrn NEGATIVE Ur Amphetamines Screen POSITIVE H MDMA (Ecstasy) Screen NEGATIVE U Benzodiazepines Scrn NEGATIVE Urine Cocaine Screen NEGATIVE U Cannabinoids Screen NEGATIVE Ur Drug Screen Comment Ethyl Alcohol < 3.0 Radiography Diagnostic Testing: Clinical Impression(s) from Imaging Studies Brain CT 08/19/23 15:15 IMPRESSION: No acute intracranial abnormality. Electronically Signed: Brennen Graham MD at 17:16 EST , Chest X-Ray 08/19/23 15:32 IMPRESSION: Enlargement of the central pulmonary arteries. Electronically Signed: Marco Antonio Barrera MD at 15:47 EST , Discharge Plan Triage Chief Complaint: Alt LOC Other Complaint: Abd Pain ED Provider: Kannan Zhang Dx/Rx/DC Orders Instructions: ED ALOC Prescriptions: No Action tamsulosin 0.4 MG capsule 0.4 mg PO DAILY losartan-hydrochlorothiazide 1 EACH tablet 1 ea PO DAILY calcium carbonate-vitamin D3 1 EACH tablet 1 ea PO DAILY Eucerin 454 GM cream 454 g TP BID All Day Allergy (cetirizine) 10 MG capsule 10 mg PO QHS Polyethylene Glycol 3350 [Gavilax] 238 GM Powder 238 g PO QODAY buspirone 10 MG tablet 10 mg PO TID melatonin 3 MG tablet 6 mg PO DAILY bisacodyl [Fleet Laxative (bisacodyl)] 5 MG tablet,delayed release (DR/EC) 5 - 10 mg PO PRN PRN (Reason: Constipation) gabapentin [Neurontin] 100 MG capsule 200 mg PO TID hydroxyzine HCl 10 MG tablet 10 mg PO DAILY dextroamphetamine-amphetamine 15 MG capsule,extended release 24hr 15 mg PO TID dutasteride 0.5 MG capsule 0.5 mg PO DAILY ketorolac 10 MG tablet 10 mg PO Q6H Qty: 14 0RF acetaminophen 500 MG tablet 500 mg PO Q4H PRN PRN (Reason: Pain) Qty: 20 0RF ibuprofen 600 MG tablet 600 mg PO Q6H PRN PRN (Reason: Pain) Qty: 20 0RF metformin 1,000 mg tablet 1,000 mg PO BID Primary Care Provider: Gerald Wesley Referrals: Gerald Wesley MD [Primary Care Provider] - Disposition Disposition: Home, Self Care
--- NOTE | 2023-08-19 15:32 | RAD_ITS ---
STUDY: X-RAY CHEST REASON FOR EXAM: Male, 58 years old. Altered mental status TECHNIQUE: Single AP portable view of the chest. COMPARISON: None. FINDINGS: EKG electrodes are seen. The lungs are clear and expanded. There is no demonstrated pleural abnormality. Normal size heart. Normal mediastinum and anish. There is prominence of the pulmonary hilar arteries without peripheral pulmonary vascular congestion, suggesting pulmonary hypertension. Normal visualized aortic arch and descending thoracic aorta. Normal visualized thoracic spine. Normal visualized ribs, clavicles, and shoulders. There is no demonstrated abnormality of the visualized soft tissue structures of the upper abdomen. RAD/Chest 1 View (Portable) IMPRESSION: Enlargement of the central pulmonary arteries. Electronically Signed: Marco Antonio Barrera MD at 15:47 EST ,
[2023-08-19 15:51] LABS: Absolute Lymphocyte Count 1.41 X10^3/uL (0.83-4.51); Basophil# 0.02 X10^3/uL; Basophil% 0.4 % (0-1); Hematocrit 43.4 % (40-54); Hemoglobin 14.5 g/dL (13.0-16.5); Lymphocyte # 1.41 X10^3/ul (0.83-4.51); Lymphocyte % 28.3 % (19-41); Mean Corp Hgb Conc 33.4 g/dL (32-36); Mean Corpuscular Hgb 28.4 pg (27.0-32.0); Mean Corpuscular Volume 85.1 fL (80-94); Mean Platelet Vol. 10.7 fl (6.2-12.0); Monocyte# 0.41 X10^3/uL; Monocyte% 8.2 % (0-10); NRBC Flagged by Analyzer 0 % (0-5); Neutrophil # 3.02 X10^3/uL (2.7-7.7); Neutrophil % 60.7 % (47-70); Platelet Count 123 K/mm3 (150-450); RBC Distribution Width CV 13.9 % (11.6-14.6); RBC Distribution Width SD 43.1 fl (35.1-43.9)
[2023-08-19 16:04] LABS: Alcohol, Blood (Medical)-Serum < 3.0 mg/dL
[2023-08-19 16:08] LABS: ALB/GLOB Ratio 1.1 RATIO (0.9-2.4); AST(SGOT) 6 U/L (15-37); Alanine Aminotransfer ALT/SGPT 18 U/L (16-61); Albumin, Serum 3.3 g/dL (3.2-5.0); Alkaline Phosphatase 91 U/L (45-117); Anion Gap 3 (5-15); BUN 21 mg/dL (7-18); BUN/Creat Ratio 28.2 RATIO (10-20); Calcium,Total 8.5 mg/dL (8.5-10.1); Chloride 106 mmol/L (98-107); Creatinine, Serum 0.75 mg/dL (0.70-1.30); EST Glomerular Filtration Rate 114 mL/min (>60); Est Glom Filt Rate - Afr Amer 138 mL/min (>60); Estimated Creatinine Clearance 150.72 ml/min; Glucose 131 mg/dL (74-106); Potassium 3.6 mmol/L (3.5-5.1); Protein, Total 6.3 g/dL (6.4-8.2); Sodium Level 139 mmol/L (136-145); Troponin-I HS 5 pg/mL (3.0-78.0)
[2023-08-19 18:06] LABS: Bacteria 0 SEEN /hpf (None Seen); Mucous, Urine 0 SEEN /hpf (<or=2+); Red Blood Cells-Urine 0 SEEN /hpf (0-5); Squamous Epithelial Cells - UA 0 SEEN /hpf (0-5); White Blood Cells 0 SEEN /hpf (0-5)
[2023-08-19 18:07] LABS: Color, Urine Yellow (Yellow); Glucose, Dipstick Normal (Normal); Ketone-Dipstick Negative (Negative); Leukocyte Esterase-Dipstick Negative /ul (Negative); Nitrite-Dipstick Negative (Negative); Occult Blood-Urine Negative /ul (Negative); Protein-Dipstick Negative (Negative); Specific Gravity, Urine 1.015 (1.002-1.030); Urine Bilirubin Dipstick Negative (Negative); Urine Clarity Clear (Clear); Urine Urobilinogen Normal (Normal); Urine pH 6.5 (5.0 - 8.0)
[2023-08-19 18:18] LABS: Amphetamine Urine VISTA POSITIVE (<1000 ng/mL); Barbiturate Urine VISTA NEGATIVE (< 200 ng/mL); Benzodiazepine Urine VISTA NEGATIVE (< 200 ng/mL); Cocaine Urine VISTA NEGATIVE (< 300 ng/mL); Ecstacy Urine VISTA NEGATIVE (< 500 ng/mL); Methadone Urine VISTA NEGATIVE (< 300 ng/mL); PCP Urine VISTA NEGATIVE (< 25 ng/mL); THC Urine VISTA NEGATIVE (< 50 ng/mL); Vista UDS pH Range 6
[2023-08-19 19:52] VITALS: BP 134/87; PULSE 78; RESP 18; O2SAT 96
[2023-08-19 21:00] VITALS: BP 130/79; PULSE 80; RESP 18; TEMP 36.1; O2SAT 98
== END 2023-08-19 21:02 | disposition home or self-care (01) ==
PROVIDERS: Emergency Provider Student in an Organized Health Care Education/Training Program; PCP Family Medicine; Visit Provider Student in an Organized Health Care Education/Training Program
DX: R41.82 Altered mental status, unspecified (principal); E11.9 Type 2 diabetes mellitus without complications; I10 Essential (primary) hypertension; F84.0 Autistic disorder; R33.9 Retention of urine, unspecified; E78.5 Hyperlipidemia, unspecified; F79 Unspecified intellectual disabilities; F90.9 Attention-deficit hyperactivity disorder, unspecified type; Z79.84 Long term (current) use of oral hypoglycemic drugs; R10.9 Unspecified abdominal pain; Z79.899 Other long term (current) drug therapy
CPT/HCPCS: 70450; 71045; 80053; 80307; 80320; 81001; 82140; 84484; 85025; 87631; 93005; 99285; A4216; G0480

== ENCOUNTER 2024-10-08 20:44 | Emergency (ER) | payer MEDICARE, MEDICAID, SELFPAY ==
[2024-10-08 20:46] VITALS: BP 166/85; PULSE 44; RESP 18; TEMP 36.2; O2SAT 97
--- NOTE | 2024-10-08 20:54 | EX.ED.DYSGE1 ---
HPI <ANDREW Sharpe - Last Filed: 10/08/24 21:07> History of Present Illness Chief Complaint: Wound Check Narrative Narrative: 59-year-old male with MRDD, ADHD was brought in by his correctional manager for evaluation of wounds on both feet. He picks his skin and they noticed his feet had small red irritated areas 3 days ago. After taking his socks off to shower today he noticed the wounds were deeper and slightly red around the margins. He has no fever chills or signs of illness. No complaints of pain. He is prediabetic. PFSH <ANDREW Sharpe - Last Filed: 10/08/24 21:07> [facility] Medical History ADHD Autism Bite wound of forearm Esophageal reflux History of appendicitis history of cellulitis of leg History of MRSA infection Hyperactivity (behavior) Hyperlipidemia Hypertension Morbid obesity Obsessive compulsive disorder Open arm wound Severe mental retardation Ventral hernia Home Medications ?Medication ?Instructions ?Recorded ?Last Taken ?Type Polyethylene Glycol 3350 [Gavilax] 238 g PO QODAY 10/28/18 Unknown History bisacodyl 5 mg tablet,delayed 5 - 10 mg PO PRN PRN Constipation 10/28/18 Unknown History release (Fleet Laxative (bisacodyl)) buspirone 10 mg tablet 10 mg PO TID 10/28/18 11/24/18 History calcium 600 mg (as 1 ea PO DAILY 10/28/18 Unknown History carbonate)-vitamin D3 10 mcg (400 unit) tablet cetirizine 10 mg capsule (All Day 10 mg PO QHS 10/28/18 Unknown History Allergy (cetirizine)) dextroamphetamine-amphetamine ER 15 mg PO TID 10/28/18 11/24/18 History 15 mg 24hr capsule,extend release dutasteride 0.5 mg capsule 0.5 mg PO DAILY 10/28/18 Unknown History gabapentin 100 mg capsule 200 mg PO TID 10/28/18 11/24/18 History (Neurontin) hydroxyzine HCl 10 mg tablet 10 mg PO DAILY Itching 10/28/18 Unknown History ketorolac 10 mg tablet 10 mg PO Q6H ##14 10/28/18 Unknown Rx lanolin alcohols-mineral 454 g TP BID 10/28/18 Unknown History oil-w.petrolatum-ceresin topical cream (Eucerin topical cream) losartan 50 mg-hydrochlorothiazide 1 ea PO DAILY 10/28/18 Unknown History 12.5 mg tablet melatonin 3 mg tablet 6 mg PO DAILY 10/28/18 Unknown History tamsulosin 0.4 mg capsule 0.4 mg PO DAILY 10/28/18 Unknown History acetaminophen 500 mg tablet 500 mg PO Q4H PRN PRN Pain #20 tabs 11/24/18 Unknown Rx ibuprofen 600 mg tablet 600 mg PO Q6H PRN PRN Pain #20 tabs 11/24/18 Unknown Rx metformin 1,000 mg tablet 1,000 mg PO BID 08/19/23 Unknown History doxycycline hyclate 100 mg capsule 100 mg PO BID 7 days #14 caps 10/08/24 Unknown Rx Allergy/AdvReac Type Severity Reaction Status Date / Time haloperidol Allergy Unknown Verified 10/08/24 20:45 haloperidol lactate (From Allergy Unknown Verified 10/08/24 20:45 Haldol) silvestre AdvReac NEEDS Verified 10/08/24 20:45 FOLLOW-UP cabbage AdvReac Unknown Verified 10/08/24 20:45 Food Allergies: Uncoded AdvReac NEEDS Verified 10/08/24 20:45 FOLLOW-UP Surgical History history finger surgery History of appendectomy History of dental surgery history tracheotomy Social History Smoking Status: Never smoker alcohol intake: never substance use type: does not use ROS <ANDREW Sharpe - Last Filed: 10/08/24 21:07> ROS ED ROS Narrative Constitutional: Negative for fever, chills, malaise. GI: Negative for nausea, vomiting. Neuro: Negative for motor/sensory dysfunction. Skin: Positive for wounds. EXAM <ANDREW Sharpe - Last Filed: 10/08/24 21:07> Physical Exam Narrative Exam Narrative: CONST: Patient sitting in no acute distress. EYES: Normal inspection. NECK: Normal inspection. RESP: No respiratory distress, CTAB. CVS: Regular rate and rhythm, no murmur, no gallop. SKIN: Small scattered scabs on lower extremities from patient picking his skin. Left dorsal foot has a deeper quarter sized. Ulceration/eschar with a halo of erythema and warmth. There is a linear ulceration/eschar on the dorsal right foot with similar halo of erythema and warmth. No lower extremity edema. No red streaking. 2+ DP pulses, full range of motion. NEURO: Alert and answering questions appropriately for mental status. PSYCH: Normal affect. Const Vital Signs: 10/08/24 20:46 Temperature 97.1 F L Temperature Source Temporal Pulse Rate 44 L Respiratory Rate 18 Blood Pressure 166/85 H Blood Pressure Mean 112 Pulse Ox 97 Oxygen Delivery Method Room Air <Dr. Levon Enrique DO - Last Filed: 10/08/24 21:14> Physical Exam Const Vital Signs: 10/08/24 20:46 Temperature 97.1 F L Temperature Source Temporal Pulse Rate 44 L Respiratory Rate 18 Blood Pressure 166/85 H Blood Pressure Mean 112 Pulse Ox 97 Oxygen Delivery Method Room Air MDM <Heidy Castillo PA - Last Filed: 10/08/24 21:07> [facility] Narrative Medical decision making narrative: History gathered from: Patient's network operations project manager and patient Differential includes but not limited to acute wound, cellulitis, no signs of abscess 5-year-old male picks his skin and has developed small wounds on bilateral dorsal feet. There is signs of early surrounding cellulitis. No lymphangitic streaking or swelling. No concern for abscess. NeurovascularLY intact. I prescribed doxycycline with first dose given here and wounds were cleansed and dressed with bacitracin and a bandage. I instructed him to follow-up with his primary care doctor or return if symptoms worsen. He was discharged in stable condition. <Dr. Levon Enrique DO - Last Filed: 10/08/24 21:14> [facility] Narrative Medical decision making narrative: History gathered from: Patient's network operations project manager and patient Differential includes but not limited to acute wound, cellulitis, no signs of abscess 5-year-old male picks his skin and has developed small wounds on bilateral dorsal feet. There is signs of early surrounding cellulitis. No lymphangitic streaking or swelling. No concern for abscess. NeurovascularLY intact. I prescribed doxycycline with first dose given here and wounds were cleansed and dressed with bacitracin and a bandage. I instructed him to follow-up with his primary care doctor or return if symptoms worsen. He was discharged in stable condition. Supervisory Physician Note Patient was seen and examined with the Advanced Practice Provider. Nursing notes and vital signs have been reviewed. Pertinent old records have been reviewed. I agree with the essential elements of the STEPHANY's history, physical exam, assessment, and plan. The differential diagnosis and management options were discussed with the STEPHANY. I participated in determining and agree with the management, procedures, final impression and disposition as documented. See changes noted by me. Please see addendum or separate note for any additional details. 59-year-old male with history of MRDD presents for evaluation of bilateral dorsal feet wounds. History of picking. I agree with the physical exam listed above Concern is for early cellulitis versus wound healing. Patient has a history of MRSA therefore will be placed on doxycycline. First dose given here. Wounds were cleaned, dressed with bacitracin and bandage. Follow-up with PCP. Monitor for worsening signs and symptoms. Return precautions explained. Patient discharged home. Impression: 1. Bilateral dorsal foot wounds 2. History of skin picking Discharge Plan Triage Chief Complaint: Wound Check ED Midlevel Provider: Heidy Castillo ED Provider: Levon Enrique Dx/Rx/DC Orders Clinical Impression: Wound of right foot, Wound of left foot, Compulsive skin picking Instructions: ED Wound Care Prescriptions: New doxycycline hyclate 100 mg capsule 100 mg PO BID 7 Days Qty: 14 0RF No Action tamsulosin 0.4 MG capsule 0.4 mg PO DAILY losartan-hydrochlorothiazide 1 EACH tablet 1 ea PO DAILY calcium carbonate-vitamin D3 1 EACH tablet 1 ea PO DAILY Eucerin 454 GM cream 454 g TP BID All Day Allergy (cetirizine) 10 MG capsule 10 mg PO QHS Polyethylene Glycol 3350 [Gavilax] 238 GM Powder 238 g PO QODAY buspirone 10 MG tablet 10 mg PO TID melatonin 3 MG tablet 6 mg PO DAILY bisacodyl [Fleet Laxative (bisacodyl)] 5 MG tablet,delayed release (DR/EC) 5 - 10 mg PO PRN PRN (Reason: Constipation) gabapentin [Neurontin] 100 MG capsule 200 mg PO TID hydroxyzine HCl 10 MG tablet 10 mg PO DAILY dextroamphetamine-amphetamine 15 MG capsule,extended release 24hr 15 mg PO TID dutasteride 0.5 MG capsule 0.5 mg PO DAILY ketorolac 10 MG tablet 10 mg PO Q6H Qty: 14 0RF acetaminophen 500 MG tablet 500 mg PO Q4H PRN PRN (Reason: Pain) Qty: 20 0RF ibuprofen 600 MG tablet 600 mg PO Q6H PRN PRN (Reason: Pain) Qty: 20 0RF metformin 1,000 mg tablet 1,000 mg PO BID Primary Care Provider: Gerald Wesley Referrals: Gerald Wesley MD [Primary Care Provider] - Activity Restrictions/Additional Instructions: Clean with soap and water daily, pat dry, apply bacitracin and a nonstick bandage. Take all the antibiotics as prescribed and follow-up with his primary care doctor next week for recheck. Print Language: Vietnamese Disposition Disposition: Home, Self Care
[2024-10-08] MEDS: Doxycycline 100 MG CAPSULE PO (21:06)
== END 2024-10-08 21:21 | disposition home or self-care (01) ==
LOC: ED 21:16
PROVIDERS: Emergency Provider Surgery; PCP Family Medicine; Visit Provider Surgery
DX: S91.301A Unspecified open wound, right foot, initial encounter (principal); I10 Essential (primary) hypertension; E78.5 Hyperlipidemia, unspecified; F42.4 Excoriation (skin-picking) disorder; S91.302A Unspecified open wound, left foot, initial encounter; R73.03 Prediabetes; F79 Unspecified intellectual disabilities; F90.9 Attention-deficit hyperactivity disorder, unspecified type; K21.9 Gastro-esophageal reflux disease without esophagitis; X58.XXXA Exposure to other specified factors, initial encounter
CPT/HCPCS: 99282